=== PATIENT | male | born 1950 | race Caucasian/White ===

== ENCOUNTER 2018-06-02 00:15 | Inpatient (IN) | payer BC, OTHER ==
[2018-06-02 03:24] LABS: BASO % 0.4 % (0-2.0); HEMOGLOBIN 13.8 GM/dL (11.7-16.9); LYMPH % 3.4 % (8-40); MCHC 33.6 g/dl (32.0-35.9); MEAN CELL VOLUME 80.2 fl (80-96); MEAN PLT VOLUME 8.8 fl (7.5-11.1); MONO % 2.3 % (3.8-10.2); NEUT % 93.9 % (42.8-82.8); PLATELET COUNT 280 K/MM3 (134-434); RDW 16.2 % (11.9-15.9); WHITE BLOOD COUNT 10.4 K/mm3 (4.0-10.0)
[2018-06-02 03:36] LABS: INR 1.1 (0.83-1.09)
[2018-06-02 03:39] LABS: ACTIVATED PTT 30.8 SECONDS (25.2-36.5)
[2018-06-02 03:49] LABS: URINE APPEARANCE CLEAR; URINE BILIRUBIN NEGATIVE (<2.0 mg/dL); URINE COLOR DK YELLOW; URINE GLUCOSE (UA) NEGATIVE (NEGATIVE); URINE KETONE TRACE (NEGATIVE); URINE LEUK ESTERASE NEGATIVE (NEGATIVE); URINE NITRITE NEGATIVE (NEGATIVE); URINE PROTEIN TRACE (NEGATIVE); URINE UROBILINOGEN 0.2 mg/dL (0.2-1.0)
[2018-06-02 03:49] LABS: ALK PHOS 58 U/L (45-117); ANION GAP 9 MMOL/L (8-16); BILIRUBIN,TOTAL 0.4 mg/dL (0.2-1); BLOOD UREA NITROGEN 19 mg/dL (7-18); CALCIUM 9.6 mg/dL (8.5-10.1); CHLORIDE 98 mmol/L (98-107); CO2 29 mmol/L (21-32); CREATININE 0.9 mg/dL (0.55-1.3); GLUCOSE,RANDOM 143 mg/dL (74-106); LIPASE 117 U/L (73-393); POTASSIUM 4.1 mmol/L (3.5-5.1); SGOT/AST 16 U/L (15-37); SGPT/ALT 21 U/L (13-61); SODIUM 136 mmol/L (136-145); TOT PROT 7.5 g/dl (6.4-8.2)
[2018-06-02 04:06] LABS: PLATELET ESTIMATE ADEQUATE
[2018-06-02] MEDS ORDERED: ACETAMINOPHEN 1000 MG/100 ML VIAL (NON FORMULARY) IVPB ONE (04:09)
[2018-06-02] MEDS ORDERED: ACETAMINOPHEN INJECTION 100 ML IVPB ONE ×2 (04:20→12:03)
--- NOTE | 2018-06-02 04:47 | PDOC ---
History of Present Illness - General Chief Complaint: Pain, Acute Stated Complaint: ABD PAIN, SWELLING/RT LEG, S/P SUGERY Time Seen by Provider: 06/02/18 02:25 History Source: Patient Exam Limitations: No Limitations - History of Present Illness Initial Comments: 06/02/18 06:23 67 yo M with a hx of GERD (Barretts Esophagus) and HTN presents to the emergency department with RLE swelling and abdominal pain. Per the patient, he had removal of a benign mass in the right anterior inguinal fold on 04/04/2018 without complications. He states he has been having non-painful RLE swelling without SOB and hx of DVT and PE. Per the patient, he began having gradual onset of periumbilical pain at 5 pm yesterday that is sharp in nature, 9/10 initially but currently 3/10, with associative burping and gas. Denies abdominal surgeries in the past. Denies the following: fever, chills, nausea, vomiting, chest pain, SOB, dysuria, hematuria, diarrhea, hematochezia, and anemia. Per the patient, last bowel movement was at 9pm and he last ate at 12 pm yesterday. Shx: Right thigh Meds: HCTZ, adair-inhibitor, Allergies: NKDA Social: Denies tobacco, alcohol, and substance abuse. Past History - Past Medical History Allergies/Adverse Reactions: Allergies Allergy/AdvReac Type Severity Reaction Status Date / Time No Known Allergies Allergy Verified 06/02/18 00:47 Home Medications: Ambulatory Orders Hydrochlorothiazide 20 mg PO DAILY 06/02/18 Anemia: No Asthma: No Cancer: No Cardiac Disorders: No CVA: No COPD: No CHF: No DVT: No Dementia: No Diabetes: No Dialysis: No GI Disorders: No Disorders: No HTN: Yes Hypercholesterolemia: No Kidney Stones: No Liver Disease: No Psychiatric Problems: No Seizures: No Thyroid Disease: No Lung CA: No - Surgical History Abdominal Surgery: No Appendectomy: No Cardiac Surgery: No Cholecystectomy: No Gastric Stapling: No GI Surgery: No Lung Surgery: No Neurologic Surgery: No - Suicide/Smoking/Psychosocial Hx Smoking History: Never smoked Have you smoked in the past 12 months: No Hx Alcohol Use: No Drug/Substance Use Hx: No Review of Systems - Review of Systems Able to Perform ROS?: Yes Is the patient limited Arabic proficient: No Constitutional: No: Chills, Diaphoresis, Fever, Weakness HEENTM: No: Eye Pain, Recent change in vision, Ear Pain, Nose Pain, Throat Pain , Mouth Pain Respiratory: No: Cough, Shortness of Breath, Hemoptysis Cardiac (ROS): Yes: Edema (RLE). No: Chest Pain, Lightheadedness, Palpitations , Syncope, Chest Tightness ABD/GI: Yes: Abdominal cramping. No: Constipated, Diarrhea, Nausea, Poor Appetite, Poor Fluid Intake, Rectal Bleeding, Vomiting, Tarry Stools : No: Burning, Dysuria, Hematuria, Incontinence Musculoskeletal: No: Back Pain, Joint Pain, Neck Pain Integumentary: No: Bruising, Erythema, Sweating Neurological: No: Headache, Numbness, Tingling, Tremors, Dizziness Psychiatric: No: Change in Appetite Endocrine: No: Unexplained Weight Gain Hematologic/Lymphatic: No: Anemia *Physical Exam - Vital Signs Last Vital Signs Temp Pulse Resp BP Pulse Ox 97.9 F 73 20 159/77 95 06/02/18 00:53 06/02/18 00:53 06/02/18 00:53 06/02/18 00:53 06/02/18 00:53 - Physical Exam General Appearance: Yes: Nourished, Appropriately Dressed. No: Apparent Distress, Obese HEENT: positive: EOMI, NGUYỄN, Normal Voice, Symmetrical, TMs Normal, Pharynx Normal, Hearing Grossly Normal. negative: Pale Conjunctivae, Scleral Icterus (R ), Scleral Icterus (L), Muffled/Hoarse voice, Pharyngeal Erythema, Tonsillar Exudate, Tonsillar Erythema, Excessive drooling Neck: positive: Trachea midline, Supple. negative: Tender, Lymphadenopathy (R) , Lymphadenopathy (L), Tender lateral, Tender midline Respiratory/Chest: positive: Lungs Clear, Normal Breath Sounds. negative: Chest Tender, Respiratory Distress, Accessory Muscle Use, Rales, Rhonchi, Stridor, Wheezing Cardiovascular: positive: Regular Rhythm, Regular Rate, S1, S2. negative: Systolic Murmur Gastrointestinal/Abdominal: positive: Normal Bowel Sounds, Tender (periumbilical ). negative: Rebound, Hernia Lymphatic: negative: Adenopathy Musculoskeletal: positive: Other (patient has surgical post scars with indurations in the right anterior thigh fold.). negative: Normal Inspection, CVA Tenderness, Vertebral Tenderness Extremity: positive: Normal Capillary Refill, Normal Range of Motion, Swelling ( RLE). negative: Normal Inspection, Tender, Cyanosis, Erythema Integumentary: positive: Normal Color, Dry, Warm Neurologic: positive: package pick up II-XII NML intact, Fully Oriented, Alert, Normal Mood/ Affect, Normal Response, Motor Strength 5/5. negative: EOM Palsy, Facial Droop , Sensory Deficit Moderate Sedation - Procedure Monitoring Vital Signs: Procedure Monitoring Vital Signs Temperature 97.9 F 06/02/18 00:53 Pulse Rate 73 06/02/18 00:53 Respiratory Rate 20 06/02/18 00:53 Blood Pressure 159/77 06/02/18 00:53 O2 Sat by Pulse Oximetry (%) 95 06/02/18 00:53 ED Treatment Course - LABORATORY CBC & Chemistry Diagram: 06/02/18 03:00 06/02/18 03:00 - ADDITIONAL ORDERS Additional order review: Laboratory Results 06/02/18 06/02/18 06/02/18 03:25 03:00 03:00 PT with INR INR PTT (Actin FS) D-Dimer Sodium 136 Potassium 4.1 Chloride 98 Carbon Dioxide 29 Anion Gap 9 BUN 19 H Creatinine 0.9 Creat Clearance w eGFR 84.69 Random Glucose 143 H Lactic Acid 2.8 H* Calcium 9.6 Total Bilirubin 0.4 AST 16 ALT 21 Alkaline Phosphatase 58 Total Protein 7.5 Albumin 4.0 Lipase 117 Urine Color Dk yellow Urine Appearance Clear Urine pH 5.0 Ur Specific [place] 1.029 Urine Protein Trace Urine Glucose (UA) Negative Urine Ketones Trace H Urine Blood Negative Urine Nitrite Negative Urine Bilirubin Negative Urine Urobilinogen 0.2 Ur Leukocyte Esterase Negative 06/02/18 06/02/18 03:00 03:00 PT with INR 13.00 INR 1.10 H PTT (Actin FS) 30.8 D-Dimer 431 Sodium Potassium Chloride Carbon Dioxide Anion Gap BUN Creatinine Creat Clearance w eGFR Random Glucose Lactic Acid Calcium Total Bilirubin AST ALT Alkaline Phosphatase Total Protein Albumin Lipase Urine Color Urine Appearance Urine pH Ur Specific [place] Urine Protein Urine Glucose (UA) Urine Ketones Urine Blood Urine Nitrite Urine Bilirubin Urine Urobilinogen Ur Leukocyte Esterase 06/02/18 03:00 RBC 5.10 MCV 80.2 MCHC 33.6 RDW 16.2 H MPV 8.8 Neutrophils % 93.9 H Lymphocytes % 3.4 L Monocytes % 2.3 L Eosinophils % 0.0 Basophils % 0.4 - RADIOLOGY Radiology Studies Ordered: Category Date Time Status ABDOMEN & PELVIS CT WITH CONTR [CT] Stat CT Scan 06/02/18 02:36 Ordered CHEST X-RAY PORTABLE* [RAD] Stat Radiology 06/02/18 02:36 Taken - Medications Given in the ED: ED Medications Discontinued Medications Generic Name Dose Route Start Last Admin Trade Name Freq PRN Reason Stop Dose Admin Acetaminophen 1,000 mg 06/02/18 04:09 06/02/18 04:25 Ofirmev Injection - IVPB 06/02/18 04:10 1,000 mg ONCE ONE Administration Medical Decision Making - Medical Decision Making 06/02/18 06:53 67 yo M with a hx of GERD (Barretts Esophagus) and HTN presents to the emergency department with RLE swelling and abdominal pain. Initial vitals: Initial Vital Signs Temp Pulse Resp BP Pulse Ox 97.9 F 73 20 159/77 95 06/02/18 00:53 06/02/18 00:53 06/02/18 00:53 06/02/18 00:53 06/02/18 00:53 Work up: ddx: pancreatitis vs SBO vs colitis vs gastritis vs ACS vs PNA vs pleuritis vs DVT vs cellulitis vs lymphatic drainage impairment secondary to recent surgical changes vs GERD vs ischemic colitis Laboratory Tests 06/02/18 06/02/18 06/02/18 03:00 03:00 03:00 WBC 10.4 H RBC 5.10 Hgb 13.8 Hct 41.0 MCV 80.2 MCH 27.0 MCHC 33.6 RDW 16.2 H Plt Count 280 MPV 8.8 Absolute Neuts (auto) 9.7 H Total Counted 100 Neutrophils % 93.9 H Neutrophils % (Manual) 96.0 H Lymphocytes % 3.4 L Lymphocytes % (Manual) 2.0 L Monocytes % 2.3 L Monocytes % (Manual) 2 L Eosinophils % 0.0 Basophils % 0.4 Nucleated RBC % 0 Platelet Estimate Adequate PT with INR 13.00 INR 1.10 H PTT (Actin FS) 30.8 D-Dimer 431 Sodium Potassium Chloride Carbon Dioxide Anion Gap BUN Creatinine Creat Clearance w eGFR Random Glucose Lactic Acid Calcium Total Bilirubin AST ALT Alkaline Phosphatase Total Protein Albumin Lipase Urine Color Urine Appearance Urine pH Ur Specific [place] Urine Protein Urine Glucose (UA) Urine Ketones Urine Blood Urine Nitrite Urine Bilirubin Urine Urobilinogen Ur Leukocyte Esterase 06/02/18 06/02/18 06/02/18 03:00 03:00 03:25 WBC RBC Hgb Hct MCV MCH MCHC RDW Plt Count MPV Absolute Neuts (auto) Total Counted Neutrophils % Neutrophils % (Manual) Lymphocytes % Lymphocytes % (Manual) Monocytes % Monocytes % (Manual) Eosinophils % Basophils % Nucleated RBC % Platelet Estimate PT with INR INR PTT (Actin FS) D-Dimer Sodium 136 Potassium 4.1 Chloride 98 Carbon Dioxide 29 Anion Gap 9 BUN 19 H Creatinine 0.9 Creat Clearance w eGFR 84.69 Random Glucose 143 H Lactic Acid 2.8 H* Calcium 9.6 Total Bilirubin 0.4 AST 16 ALT 21 Alkaline Phosphatase 58 Total Protein 7.5 Albumin 4.0 Lipase 117 Urine Color Dk yellow Urine Appearance Clear Urine pH 5.0 Ur Specific [place] 1.029 Urine Protein Trace Urine Glucose (UA) Negative Urine Ketones Trace H Urine Blood Negative Urine Nitrite Negative Urine Bilirubin Negative Urine Urobilinogen 0.[address] CT shows high grade SBO. Patients labs within normal limits except for the following; 10.4 WBC and 2.8 lactic acid. the patient had an N/V event NBNB after the initial encounter. per the patient's he was having increased pain. d- dimer was negative, thus no US needed. patient was given tylenol and 1 L of NS. Patient agrees to the admitted. the patient was signed out to Dr. Meza for pending surgery consult and admission. Dispo: Admit *DC/Admit/Observation/Transfer Diagnosis at time of Disposition: Small bowel obstruction - Referrals - Patient Instructions - Post Discharge Activity
[2018-06-02] MEDS ORDERED: ONDANSETRON 4 MG/2 ML VIAL IVPUSH ONE (06:11)
[2018-06-02] MEDS ORDERED: ONDANSETRON 4 MG/2 ML VIAL ONE ×2 (06:13→11:10)
[2018-06-02] MEDS ORDERED: SODIUM CHLORIDE 1,000 ML IV STA ×2 (06:19→08:23)
--- NOTE | 2018-06-02 06:19 | PDOC ---
Attending Attestation - Resident Resident Name: James Stern - ED Attending Attestation I have performed the following: I have examined & evaluated the patient, The case was reviewed & discussed with the resident, I agree w/resident's findings & plan, Exceptions are as noted - HPI HPI: 06/02/18 06:13 67 M with h/o HTN, recent benign mass removal from R groin 03/2018, presenting to ED with abdominal pain and RLE swelling. Pt states that his right leg has gotten progressively more swollen over the past week. Denies CP/SOB. Pt also complains of diffuse abdominal pain starting today. Denies N/V. States the pain wraps around his lower abdomen. Denies diarrhea/constipation. No F/C. No prior abdominal surgeries. - Physicial Exam PE: 06/02/18 06:14 "GENERAL: Awake, alert, and fully oriented, in no acute distress. HEAD: No signs of trauma EYES: PERRLA, EOMI, sclera anicteric, conjunctiva clear ENT: Auricles normal inspection, hearing grossly normal, nares patent, oropharynx clear without exudates. Moist mucosa NECK: Nontender, no stepoffs, Normal ROM, supple, no lymphadenopathy, JVD, or masses LUNGS: Breath sounds equal, clear to auscultation bilaterally. No wheezes, and no crackles HEART: Regular rate and rhythm, normal S1 and S2, no murmurs, rubs or gallops ABDOMEN: + diffuse TTP, No guarding, no rebound. No masses EXTREMITIES: +2 PE RLE NEUROLOGICAL: Cranial nerves II through XII intact. 5/5 strength and sensation in all extremities, Normal speech, normal gait, normal cerebellar function SKIN: Warm, Dry, normal turgor, no rashes or lesions noted. - Medical Decision Making 06/02/18 06:16 67 M with diffuse abdominal pain. Vomited x [address] in [address] Will obtain CT to r/o obstruction. Pt also with significant swelling to RLE. Will need to r/o DVT. - Labs, ddimer - CTAP - RLE US 06/02/18 06:56 Labs with + lactate Ddimer negative CT shows high grade SBO Pt signed out to oncoming attending, pending surgical consultation and admission to hospital
--- NOTE | 2018-06-02 07:12 | PDOC ---
*Physical Exam - Vital Signs Last Vital Signs Temp Pulse Resp BP Pulse Ox 98.6 F 88 20 155/71 99 06/02/18 06:36 06/02/18 06:36 06/02/18 06:36 06/02/18 06:36 06/02/18 06:36 ED Treatment Course - LABORATORY CBC & Chemistry Diagram: 06/02/18 03:00 06/02/18 03:00 - ADDITIONAL ORDERS Additional order review: Laboratory Results 06/02/18 06/02/18 06/02/18 03:25 03:00 03:00 PT with INR INR PTT (Actin FS) D-Dimer Sodium 136 Potassium 4.1 Chloride 98 Carbon Dioxide 29 Anion Gap 9 BUN 19 H Creatinine 0.9 Creat Clearance w eGFR 84.69 Random Glucose 143 H Lactic Acid 2.8 H* Calcium 9.6 Total Bilirubin 0.4 AST 16 ALT 21 Alkaline Phosphatase 58 Total Protein 7.5 Albumin 4.0 Lipase 117 Urine Color Dk yellow Urine Appearance Clear Urine pH 5.0 Ur Specific [place] 1.029 Urine Protein Trace Urine Glucose (UA) Negative Urine Ketones Trace H Urine Blood Negative Urine Nitrite Negative Urine Bilirubin Negative Urine Urobilinogen 0.2 Ur Leukocyte Esterase Negative 06/02/18 06/02/18 03:00 03:00 PT with INR 13.00 INR 1.10 H PTT (Actin FS) 30.8 D-Dimer 431 Sodium Potassium Chloride Carbon Dioxide Anion Gap BUN Creatinine Creat Clearance w eGFR Random Glucose Lactic Acid Calcium Total Bilirubin AST ALT Alkaline Phosphatase Total Protein Albumin Lipase Urine Color Urine Appearance Urine pH Ur Specific [place] Urine Protein Urine Glucose (UA) Urine Ketones Urine Blood Urine Nitrite Urine Bilirubin Urine Urobilinogen Ur Leukocyte Esterase 06/02/18 03:00 RBC 5.10 MCV 80.2 MCHC 33.6 RDW 16.2 H MPV 8.8 Neutrophils % 93.9 H Lymphocytes % 3.4 L Monocytes % 2.3 L Eosinophils % 0.0 Basophils % 0.4 - Medications Given in the ED: ED Medications Discontinued Medications Generic Name Dose Route Start Last Admin Trade Name Freq PRN Reason Stop Dose Admin Acetaminophen 1,000 mg 06/02/18 04:09 06/02/18 04:25 Ofirmev Injection - IVPB 06/02/18 04:10 1,000 mg ONCE ONE Administration Ondansetron HCl 4 mg 06/02/18 06:11 06/02/18 06:19 Zofran Injection IVPUSH 06/02/18 06:12 4 mg ONCE ONE Administration Medical Decision Making - Medical Decision Making 06/02/18 07:11 Pt signed out to me by Dr. Stern 67yo M with PMH of GERD, HTN presenting to ED for RLE swelling and abdominal pain. Gradual onset of periumbilical pain at 5 pm yesterday that is sharp in nature, 9/10 associated with burping. No nausea or vomiting at home however pt had 1 episode of emesis here. CT with IV contrast showed high greade SBO. Lact 2.8 Need to call surgery and get pt admitted med/surg. Called Dr.Kant. Moe start pt on 2nd L fluids, T+S, NG tube placement, NPO. PT admitted med/surg 06/02/18 19:39 *DC/Admit/Observation/Transfer Diagnosis at time of Disposition: Small bowel obstruction - Referrals - Patient Instructions - Post Discharge Activity
[2018-06-02] MEDS ORDERED: LACTATED RINGERS SOLUTION 1000 ML INFUS.BAG IV ONE (08:00)
[2018-06-02] MEDS ORDERED: morphine CARPU-JECT 4 MG/1 ML DISP.SYRIN IVPUSH ONE (08:26)
[2018-06-02] MEDS ORDERED: MORPHINE SULFATE 2 MG/ML VIAL ONE (08:29)
[2018-06-02] MEDS ORDERED: LACTATED RINGERS SOLUTION 1,000 ML/1,000 ML INFUS.BAG IV SCH ×2 (08:30→13:56)
--- NOTE | 2018-06-02 10:15 | CONSULT ---
Consult Consult Specialty:: General Surgery Referred by:: Tim Meza Reason for Consultation:: SBO - History of Present Illness Chief Complaint: periumbilical pain History of Present Illness: 67yo M with HTN, GERD, Ron's, s/p R upper thigh large benign mass removal 2m ago but no previous abdominal surgeries, began having periumbilical pain last evening which did not marisol and continued to get worse, prompting a visit to urgent care this morning, who sent him to ER for evaluation. He denies N/V until ER, diarrhea or constipation, last normal BM last night, F/C, similar previous pain. He did not take anything for the pain, and last po was food last afternoon and tea last night. In ER, he is afebrile, with wbc just over 10, dry by UA, and CT shows SBO with transition against RLQ sidewall. NGT has been placed, and IVF given. He still has some discomfort periumbilically but denies migration of pain. Not sure what the R thigh mass was but it was large and long- standing, and he was told it was benign. He is seen and examined in holding in ER with present. - History Source History Provided By: Patient Limitations to Obtaining History: No Limitations - Past Medical History Cardio/Vascular: Yes: HTN Gastrointestinal: Yes: GERD, Other (Ron's esophagus) - Past Surgical History Past Surgical History: Yes: Cataract Removal (bilateral), Colonoscopy (3-4 yrs ago), Upper Endoscopy Additional Surgical History: R upper thigh long-standing large benign mass removed 03/31 at [facility] - Alcohol/Substance Use Hx Alcohol Use: Yes (wine with dinner most days) History of Substance Use: reports: None - Smoking History Smoking history: Former smoker (3-4/day for 5 yrs) Have you smoked in the past 12 months: No If you are a former smoker, when did you quit?: many years ago - Social History Usual Living Arrangement: With Spouse ADL: Independent Home Medications - Allergies Allergies/Adverse Reactions: Allergies Allergy/AdvReac Type Severity Reaction Status Date / Time No Known Allergies Allergy Verified 06/02/18 00:47 - Home Medications Home Medications: Ambulatory Orders Hydrochlorothiazide 20 mg PO DAILY 06/02/18 Home Medications (free text): HCTZ daily, lisinopril daily; omeprazole daily Family Disease History - Family Disease History Family History: Unremarkable (noncontributory) Review of Systems - Review of Systems Constitutional: denies: Chills, Fever Eyes: reports: Other (uses reading glasses). denies: Recent Change in Vision HENT: denies: Difficult Swallowing, Nasal Congestion, Throat Pain Neck: denies: Swollen Glands, Tenderness Cardiovascular: denies: Chest Pain, Palpitations Respiratory: denies: Cough, SOB Gastrointestinal: reports: Abdominal Pain (with hpi), Nausea (in ER), Vomiting ( in ER). denies: Constipation, Diarrhea Genitourinary: denies: Burning, Dysuria Musculoskeletal: denies: Back Pain, Joint Pain, Muscle Pain Integumentary: reports: Other (healing scar upper right thigh). denies: Change in Color, Rash Neurological: denies: Dizziness, Headache Psychiatric: denies: Anxiety, Depression Physical Exam Vital Signs: Vital Signs Temperature 98.6 F 06/02/18 06:36 Pulse Rate 88 06/02/18 06:36 Respiratory Rate 20 06/02/18 06:36 Blood Pressure 155/71 06/02/18 06:36 O2 Sat by Pulse Oximetry (%) 99 06/02/18 06:36 Constitutional: Yes: Well Nourished, No Distress, Calm Eyes: Yes: Conjunctiva Clear, EOM Intact HENT: Yes: Atraumatic, Normocephalic, Other (NGT in place, resecured with total output 1100ml brown fluid (was ~300 on my arrival)) Neck: Yes: Supple, Trachea Midline Cardiovascular: Yes: Regular Rate and Rhythm. No: Murmur Respiratory: Yes: Regular, CTA Bilaterally Gastrointestinal: Yes: Soft, Hypoactive Bowel Sounds, Tenderness (mild periumbilical only, no R/G). No: Distention ...Rectal Exam: Yes: Deferred Renal/: No: CVA Tenderness - Left, CVA Tenderness - Right Musculoskeletal: No: Joint Stiffness, Joint Swelling Extremities: Yes: Other (long healing scar right upper thigh from just under groin crease around to posterolateral hip area). No: Cool, Cyanosis Edema: Yes Edema: LLE: Trace, RLE: Trace Peripheral Pulses WNL: Yes Integumentary: Yes: Incision (R upper thigh, healing scar). No: Jaundice, Rash Wound/Incision: Yes: Clean/Dry, Well Approximated (R upper thigh scar), Open to air Neurological: Yes: Alert, Oriented Psychiatric: Yes: Alert, Oriented Labs: CBC, BMP 06/02/18 03:00 06/02/18 03:00 CMP Sodium 136 mmol/L (136-145) 06/02/18 03:00 Potassium 4.1 mmol/L (3.5-5.1) 06/02/18 03:00 Chloride 98 mmol/L (98-107) 06/02/18 03:00 Carbon Dioxide 29 mmol/L (21-32) 06/02/18 03:00 Anion Gap 9 MMOL/L (8-16) 06/02/18 03:00 BUN 19 mg/dL (7-18) H 06/02/18 03:00 Creatinine 0.9 mg/dL (0.55-1.3) 06/02/18 03:00 Creat Clearance w eGFR 84.69 (>60) 06/02/18 03:00 Random Glucose 143 mg/dL (74-106) H 06/02/18 03:00 Lactic Acid 2.8 mmol/L (0.4-2.0) H* 06/02/18 03:00 Calcium 9.6 mg/dL (8.5-10.1) 06/02/18 03:00 Total Bilirubin 0.4 mg/dL (0.2-1) 06/02/18 03:00 AST 16 U/L (15-37) 06/02/18 03:00 ALT 21 U/L (13-61) 06/02/18 03:00 Alkaline Phosphatase 58 U/L (45-117) 06/02/18 03:00 Total Protein 7.5 g/dl (6.4-8.2) 06/02/18 03:00 Albumin 4.0 g/dl (3.4-5.0) 06/02/18 03:00 Lipase 117 U/L (73-393) 06/02/18 03:00 INR, PTT INR 1.10 (0.83-1.09) H 06/02/18 03:00 Urine Test Results Urine Color Dk yellow 06/02/18 03:25 Urine Appearance Clear 06/02/18 03:25 Urine pH 5.0 (5.0-8.0) 06/02/18 03:25 Ur Specific [place] 1.029 (1.010-1.035) 06/02/18 03:25 Urine Protein Trace (NEGATIVE) 06/02/18 03:25 Urine Glucose (UA) Negative (NEGATIVE) 06/02/18 03:25 Urine Ketones Trace (NEGATIVE) H 06/02/18 03:25 Urine Blood Negative (NEGATIVE) 06/02/18 03:25 Urine Nitrite Negative (NEGATIVE) 06/02/18 03:25 Urine Bilirubin Negative (<2.0 mg/dL) 06/02/18 03:25 Ur Leukocyte Esterase Negative (NEGATIVE) 06/02/18 03:25 Imaging - Results Cat Scan: Image Reviewed (images reviewed - dilated stomach and small bowel to likely transition in RLQ around sidewall, appendix not clearly identified by me , not clearly inflammatory changes, no free air or fluid, possible pneumatosis in a segment of dilated small bowel, colon decompressed with stool content present) Problem List - Problems (1) Small bowel obstruction Assessment/Plan: admit to medicine NPO/IVF - generous hydration NGT placed - now with copious output GI/DVT prophylaxis SBO with no history of abdominal surgery - urgent exploration indicated Discussed with patient risks, benefits and alternatives of exploratory laparotomy, possible bowel resection, possible ostomy, including but not limited to bleeding, infection, injury to adjacent structures, intestinal leak or injury, intraabdominal abscess, incisional hernia, need for further procedures, ; alternatives include delayed or no surgery - risks of this include perforation, bowel ischemia, sepsis, . Patient desires to proceed with operation - will take to OR emergently for above. Informed consent signed for same. NGT will stay postop until bowel function resumes perioperative antibiotics Code(s): K56.609 - UNSP INTESTNL OBST, UNSP TO PARTIAL VERSUS COMPLETE OBST (2) Periumbilical abdominal pain Code(s): R10.33 - PERIUMBILICAL PAIN (3) Hypertension Code(s): I10 - ESSENTIAL (PRIMARY) HYPERTENSION Qualifiers: Hypertension type: essential hypertension Qualified Code(s): I10 - Essential (primary) hypertension (4) GERD (gastroesophageal reflux disease) Code(s): K21.9 - GASTRO-ESOPHAGEAL REFLUX DISEASE WITHOUT ESOPHAGITIS Qualifiers: Esophagitis presence: without esophagitis Qualified Code(s): K21.9 - Gastro -esophageal reflux disease without esophagitis
[2018-06-02] MEDS ORDERED: ROCURONIUM BROMIDE 50 MG/5 ML VIAL ONE ×2 (10:45→11:52)
[2018-06-02] MEDS ORDERED: PROPOFOL 20 ML ONE ×3 (10:45→12:36)
[2018-06-02] MEDS ORDERED: MIDAZOLAM HCL 2 MG/2 ML SINGLE DOSE VIAL ONE (10:46)
[2018-06-02] MEDS ORDERED: LIDOCAINE HCL/PF 2% SDV 5ML VIAL ONE (10:47)
[2018-06-02] MEDS ORDERED: CEFOXITIN SODIUM 2 GM IVPB ONE (10:52)
[2018-06-02] MEDS ORDERED: cefOXitin SODIUM 2 GM VIAL (RESTRICTED TO ID) IVPB ONE (11:03)
[2018-06-02] MEDS ORDERED: SODIUM CHLORIDE 0.9% P/F 10 ML VIAL IJ ONE (11:06)
[2018-06-02] MEDS ORDERED: DEXAMETHASONE SOD PHOSPHATE 4 MG/1 ML VIAL ONE (11:10)
--- NOTE | 2018-06-02 11:19 | HP ---
CHIEF COMPLAINT: abdominal pain. PCP: HISTORY OF PRESENT ILLNESS: 67 yo M with PMHx of HTN, GERD, Ron's, s/p R upper thigh large benign mass removal 2m ago but no prev abdominal surgeries with one day history of intractable progressive periumbilical pain. He describes progressive intermittent 10/10 twisting periumbilical pain with no alleviating factors. Aggravated by palpation and certain movements. Pain progressed to be more constant and prompted a visit to urgent care and subsequently sent to ER for further evaluation. He denied N/V until ER, diarrhea or constipation, last non- bloddy BM last night, no similar previous pain. He did not take anything for the pain, and last po was food last afternoon and tea last night. In ER, he was afebrile, no leukocytosis, pre-renal azotemia, and CT abdomen showed SBO. NGT was placed, and IVF given. He had continued discomfort periumbilically but denied migration of pain. Unclear of nature of R thigh mass was but it was large and long-standing, and he was told it was benign. Dr. Heller evaluated patient in ER and was taken to OR for surgical intervention. ER course was notable for: (1)CT abdomen shows high grade obstruction. (2)Lactic Acid 2.8 (3)Surgery consult and taken to OR. Recent Travel:denies PAST MEDICAL HISTORY:HTN, GERD, Ron's esophagus PAST SURGICAL HISTORY:Cataract Removal (bilateral), Colonoscopy (3-4 yrs ago as per patient NORMAL), Upper Endoscopy,R upper thigh long-standing large benign mass removed 03/31 at [facility] Social History: Smoking: Former smoker (3-4/day for 5 yrs) Alcohol:socially Drugs: denies Family History: Father and Brother both with HTN, Mother @45 of uterine cancer, Father on OR table during CABG @75. Allergies No Known Allergies Allergy (Verified 06/02/18 00:47) HOME MEDICATIONS: Home Medications Medication Instructions Recorded Hydrochlorothiazide 20 mg PO DAILY 06/02/18 REVIEW OF SYSTEMS CONSTITUTIONAL: Absent: fever, chills, diaphoresis, generalized weakness, malaise, loss of appetite, weight change HEENT: Absent: rhinorrhea, nasal congestion, throat pain, throat swelling, difficulty swallowing, mouth swelling, ear pain, eye pain, visual changes CARDIOVASCULAR: Absent: chest pain, syncope, palpitations, irregular heart rate, lightheadedness , peripheral edema RESPIRATORY: Absent: cough, shortness of breath, dyspnea with exertion, orthopnea, wheezing, stridor, hemoptysis GASTROINTESTINAL: abdominal pain, abdominal distension, nausea, vomiting, Absent: diarrhea, constipation, melena, hematochezia GENITOURINARY: Absent: dysuria, frequency, urgency, hesitancy, hematuria, flank pain, genital pain MUSCULOSKELETAL: Healing right upper thigh. Absent: myalgia, arthralgia, joint swelling, back pain, neck pain SKIN: Absent: rash, itching, pallor HEMATOLOGIC/IMMUNOLOGIC: Absent: easy bleeding, easy bruising, lymphadenopathy, frequent infections ENDOCRINE: Absent: unexplained weight gain, unexplained weight loss, heat intolerance, cold intolerance NEUROLOGIC: Absent: headache, focal weakness or paresthesias, dizziness, unsteady gait, seizure, mental status changes, bladder or bowel incontinence PSYCHIATRIC: Absent: anxiety, depression, suicidal or homicidal ideation, hallucinations. PHYSICAL EXAMINATION Vital Signs - 24 hr 06/02/18 06/02/18 06/02/18 00:53 06:36 10:17 Temperature 97.9 F 98.6 F 98.2 F Pulse Rate 73 Pulse Rate [ 88 103 H Right Radial] Respiratory 20 20 17 Rate Blood Pressure 159/77 Blood Pressure 155/71 136/80 [Right Arm] O2 Sat by Pulse 95 99 93 L Oximetry (%) GENERAL: AAOx3, NAD HEAD:NCAT EYES: PERRLA,EOMI sclera anicteric, conjunctiva clear. No lid lag. EARS, NOSE, THROAT:Moist mucous membranes. NG tube in place. NECK:supple without lymphadenopathy, JVD, or masses. LUNGS: CTAB. No wheezes, and no crackles. No accessory muscle use. HEART: RRR, NL S1 and S2 without murmur, rub or gallop. ABDOMEN: Soft, surgical wound appears c/d/i. MUSCULOSKELETAL: NL ROM. No bony deformities or tenderness. No CVA tenderness. LOWER EXTREMITIES: 2+ pulses, warm, well-perfused. No calf tenderness. trace bilateral LE edema. NEUROLOGICAL: Cranial nerves II-XII intact. Normal speech. No focal def. PSYCHIATRIC: Cooperative. Good eye contact. Appropriate mood and affect. SKIN: long healing scar right upper thigh from just under groin crease around to posterolateral hip area Laboratory Results - last 24 hr 06/02/18 06/02/18 06/02/18 03:00 03:00 03:00 WBC 10.4 H RBC 5.10 Hgb 13.8 Hct 41.0 MCV 80.2 MCH 27.0 MCHC 33.6 RDW 16.2 H Plt Count 280 MPV 8.8 Absolute Neuts (auto) 9.7 H Total Counted 100 Neutrophils % 93.9 H Neutrophils % (Manual) 96.0 H Lymphocytes % 3.4 L Lymphocytes % (Manual) 2.0 L Monocytes % 2.3 L Monocytes % (Manual) 2 L Eosinophils % 0.0 Basophils % 0.4 Nucleated RBC % 0 Platelet Estimate Adequate PT with INR 13.00 INR 1.10 H PTT (Actin FS) 30.8 D-Dimer 431 Sodium Potassium Chloride Carbon Dioxide Anion Gap BUN Creatinine Creat Clearance w eGFR Random Glucose Lactic Acid Calcium Total Bilirubin AST ALT Alkaline Phosphatase Total Protein Albumin Lipase Urine Color Urine Appearance Urine pH Ur Specific [place] Urine Protein Urine Glucose (UA) Urine Ketones Urine Blood Urine Nitrite Urine Bilirubin Urine Urobilinogen Ur Leukocyte Esterase Blood Type Antibody Screen 06/02/18 06/02/18 06/02/18 03:00 03:00 03:25 WBC RBC Hgb Hct MCV MCH MCHC RDW Plt Count MPV Absolute Neuts (auto) Total Counted Neutrophils % Neutrophils % (Manual) Lymphocytes % Lymphocytes % (Manual) Monocytes % Monocytes % (Manual) Eosinophils % Basophils % Nucleated RBC % Platelet Estimate PT with INR INR PTT (Actin FS) D-Dimer Sodium 136 Potassium 4.1 Chloride 98 Carbon Dioxide 29 Anion Gap 9 BUN 19 H Creatinine 0.9 Creat Clearance w eGFR 84.69 Random Glucose 143 H Lactic Acid 2.8 H* Calcium 9.6 Total Bilirubin 0.4 AST 16 ALT 21 Alkaline Phosphatase 58 Total Protein 7.5 Albumin 4.0 Lipase 117 Urine Color Dk yellow Urine Appearance Clear Urine pH 5.0 Ur Specific [place] 1.029 Urine Protein Trace Urine Glucose (UA) Negative Urine Ketones Trace H Urine Blood Negative Urine Nitrite Negative Urine Bilirubin Negative Urine Urobilinogen 0.2 Ur Leukocyte Esterase Negative Blood Type Antibody Screen 06/02/18 08:28 WBC RBC Hgb Hct MCV MCH MCHC RDW Plt Count MPV Absolute Neuts (auto) Total Counted Neutrophils % Neutrophils % (Manual) Lymphocytes % Lymphocytes % (Manual) Monocytes % Monocytes % (Manual) Eosinophils % Basophils % Nucleated RBC % Platelet Estimate PT with INR INR PTT (Actin FS) D-Dimer Sodium Potassium Chloride Carbon Dioxide Anion Gap BUN Creatinine Creat Clearance w eGFR Random Glucose Lactic Acid Calcium Total Bilirubin AST ALT Alkaline Phosphatase Total Protein Albumin Lipase Urine Color Urine Appearance Urine pH Ur Specific [place] Urine Protein Urine Glucose (UA) Urine Ketones Urine Blood Urine Nitrite Urine Bilirubin Urine Urobilinogen Ur Leukocyte Esterase Blood Type O POSITIVE Antibody Screen Negative IMAGING: * CT abdomen:Impression:1. High-grade distal small bowel obstruction as described above.2. Slight asymmetric right renal atrophy.3. 0.8 x 0.5 cm nonobstructing right renal calculus. Number for extensive skin thickening and subcutaneous fat stranding inflammatory changes involving the right thigh extending into the right lateral gluteal area which could be due to infectious, inflammatory, or neoplastic etiology. Clinical correlation with direct visual physical examination is recommended if not already performed.4. Grade 1 anterolisthesis of L5 on S1 secondary to degenerative changes. ASSESSMENT/PLAN: 67 yo M with a hx of GERD (Barretts Esophagus) and HTN presents to the emergency department with RLE swelling and abdominal pain admitted for high grade SBO and need for urgent surgical exploration POD #0 s/p bowel resection and primary anastomosis. Problem List - Problem (1) Small bowel obstruction Assessment/Plan: POD # 0 s/p small bowel resection, biopsy of proximal small bowel implant, peritoneal washings * NPO * NG tube * Dr. Heller on board. * specimens sent for pathology * CA19-9 or CEA pending. * post-op abx. Cefoxiting 2gm IV x 1 * ETHNOARCHAEOLOGY PROFESSOR per anesthesia for pain * tylenol IVPB PRN * Compazine PRN for nausea. * IVF with LR (2) GERD (gastroesophageal reflux disease) Assessment/Plan: * Protonix 40 mg IV daily (3) Hypertension Assessment/Plan: * HCTZ 20mg daily held. * will cover with IV antihypertensives if necessary. (4) DVT prophylaxis Assessment/Plan: scd's bilat. Visit type - Emergency Visit Emergency Visit: Yes ED Registration Date: 06/02/18 Care time: The patient presented to the Emergency Department on the above date and was hospitalized for further evaluation of their emergent condition. - New Patient This patient is new to me today: Yes Date on this admission: 06/02/18 - Critical Care Critical Care patient: No
[2018-06-02] MEDS ORDERED: morphine SULFATE 4 MG/ML VIAL IVPUSH PRN (11:22)
[2018-06-02] MEDS ORDERED: ONDANSETRON 4 MG/2 ML VIAL IVPUSH PRN ×3 (11:24→15:02)
[2018-06-02] MEDS ORDERED: METOPROLOL TARTRATE 5 MG/5 ML VIAL ONE (12:14)
[2018-06-02] MEDS ORDERED: NEOSTIGMINE METHYLSULFATE 0.5 MG/1 ML - 10 ML MDV ONE (12:34)
[2018-06-02] MEDS ORDERED: GLYCOPYRROLATE 0.2 MG/1 ML VIAL ONE ×2 (12:34→13:01)
[2018-06-02] MEDS ORDERED: KETOROLAC TROMETHAMINE 30 MG/1 ML VIAL ONE (12:43)
[2018-06-02] MEDS ORDERED: HYDROmorphone *PCA* 10MG/50ML DISP.SYRIN PCA SCH (13:15)
[2018-06-02] MEDS ORDERED: PROMETHAZINE HCL 25 MG/1 ML VIAL IVPB PRN (13:15)
[2018-06-02] MEDS ORDERED: LACTATED RINGERS SOLUTION 1,000 ML IV SCH (13:15)
[2018-06-02] MEDS ORDERED: DEXAMETHASONE SOD PHOSPHATE 4 MG/1 ML VIAL IVPUSH PRN ×2 (13:15→15:02)
[2018-06-02] MEDS ORDERED: HYDROmorphone *PCA* 10MG/50ML DISP.SYRIN PCA ONE (13:25)
--- NOTE | 2018-06-02 14:03 | OP ---
Operative Note - Note: Operative Date: 06/02/18 Pre-Operative Diagnosis: small bowel obstruction Operation: small bowel resection, biopsy of proximal small bowel implant, peritoneal washings Findings: fecalized segment of proximal small bowel with transition but no clear etiology , bowel wall implant short distance distal to this - entire segment removed en bloc 23cm long w/primary anastomosis; multiple small bowel wall implants on proximal small intestine all the way back to ligament of Treitz, one biopsied for pathology, areas marked with small mesenteric metal clips; peritoneal washings taken for cytology from proximal bowel area; normal appearing liver, stomach, colon, appendix, omentum Post-Operative Diagnosis: Other (SBO, multiple small intestinal implants on proximal bowel, fecalized small bowel with no clear etiology for transition point) Surgeon: Fredy Heller Refrigerating Oiler: Javi Clements Anesthesiologist/TITLE INSPECTOR: Don Cardona Anesthesia: General Specimens Removed: portion of proximal small bowel (stitch scott proximal/ lesion distal) to pathology, biopsy of small intestinal implant/nodule to pathology; peritoneal washings for cytology and cell count; peritoneal fluid for culture Estimated Blood Loss (mls): 10 Drains & Tubes with Location: preop NG palpated and left; Zepeda inserted and left Drains, Volume Out (mls): 100 (UOP) Fluid Volume Replaced (mls): 1,300 (crystalloid) Operative Report Dictated: Yes
[2018-06-02] MEDS ORDERED: LACTATED RINGERS SOLUTION 1000 ML INFUS.BAG IV SCH ×2 (15:00→15:02)
--- NOTE | 2018-06-02 15:41 | PN ---
Teaching Attending Note Name of Resident: Earl Mojica ATTENDING PHYSICIAN STATEMENT I saw and evaluated the patient. I reviewed the resident's note and discussed the case with the resident. I agree with the resident's findings and plan as documented. SUBJECTIVE: OBJECTIVE: ASSESSMENT AND PLAN: 67 y/o man with h/o HTN, GERD, and a recent R thigh mass resection ( reportedly benign) , who presented with Abd pain . He was found to have acute high grade distal SBO . 1- High grade distal SBO: unclear etiology. s/p partial small bowel resection POD 0 Op note reviewed, several small bowel wall implants were seen and Bx was taken. - follow path results - NPO - IVF with LR - BROADCAST CHIEF ENGINEER ordered - Appreciate surgical input 2- H/o HTN: hold HCTZ . hydrating now . slight hypertension could be due pain 3- GERD: PPI
[2018-06-02] MEDS ORDERED: PROCHLORPERAZINE INJECTION 10 MG/2 ML VIAL IVPB PRN (16:11)
--- NOTE | 2018-06-02 16:39 | EKG ---
Test Reason : Blood Pressure : / mmHG Vent. Rate : 071 BPM Atrial Rate : 071 BPM P-R Int : 164 ms QRS Dur : 092 ms QT Int : 406 ms P-R-T Axes : 045 -07 026 degrees QTc Int : 441 ms NORMAL SINUS RHYTHM WITH SINUS ARRHYTHMIA POSSIBLE LEFT ATRIAL ENLARGEMENT BORDERLINE ECG NO PREVIOUS ECGS AVAILABLE Confirmed by GAMALIEL JAQUEZ MD ([id number]) on 06/02/2018 4:38:34 PM Referred By: Confirmed By:GAMALIEL JAQUEZ MD
[2018-06-02] MEDS: HYDROmorphone *PCA* 10MG/50ML DISP.SYRIN PCA SCH (17:33)
[2018-06-02] MEDS: LACTATED RINGERS SOLUTION 1,000 ML/1,000 ML INFUS.BAG IV SCH (17:33)
[2018-06-02] MEDS ORDERED: CEFOXITIN SODIUM 2 GM in DEXTROSE 5%-WATER - 100 ML IVPB ONE (18:00)
[2018-06-02] MEDS ORDERED: CEFOXITIN SODIUM/DEXTROSE,ISO 2 GM/50 ML BAG IVPB ONE ×2 (18:00)
[2018-06-02] MEDS ORDERED: ACETAMINOPHEN 1000 MG/100 ML VIAL (NON FORMULARY) IVPB PRN ×2 (18:00)
[2018-06-03] MEDS: HYDROmorphone *PCA* 10MG/50ML DISP.SYRIN PCA SCH (07:45)
[2018-06-03 07:55] LABS: BASO % 0.6 % (0-2.0); EOS % 0.4 % (0-4.5); HEMATOCRIT 33.5 % (35.4-49); HEMOGLOBIN 11.1 GM/dL (11.7-16.9); LYMPH % 5.9 % (8-40); MCH 26.2 pg (25.7-33.7); MCHC 33.2 g/dl (32.0-35.9); MEAN CELL VOLUME 79.1 fl (80-96); MEAN PLT VOLUME 8.9 fl (7.5-11.1); MONO % 11.3 % (3.8-10.2); NEUT % 81.8 % (42.8-82.8); PLATELET COUNT 237 K/MM3 (134-434); RBC 4.23 M/mm3 (4.00-5.60); RDW 16.7 % (11.9-15.9); WHITE BLOOD COUNT 7.9 K/mm3 (4.0-10.0)
[2018-06-03 08:28] LABS: ALBUMIN 2.7 g/dl (3.4-5.0); ALK PHOS 39 U/L (45-117); ANION GAP 6 MMOL/L (8-16); BILIRUBIN,TOTAL 0.7 mg/dL (0.2-1); BLOOD UREA NITROGEN 20 mg/dL (7-18); CALCIUM 8.1 mg/dL (8.5-10.1); CHLORIDE 104 mmol/L (98-107); CO2 29 mmol/L (21-32); CREATININE 0.8 mg/dL (0.55-1.3); GLUCOSE,RANDOM 101 mg/dL (74-106); MAGNESIUM 2.1 mg/dL (1.8-2.4); PHOSPHOROUS 3.4 mg/dL (2.5-4.9); POTASSIUM 3.8 mmol/L (3.5-5.1); SGOT/AST 15 U/L (15-37); SGPT/ALT 21 U/L (13-61); SODIUM 139 mmol/L (136-145); TOT PROT 5.3 g/dl (6.4-8.2)
[2018-06-03] MEDS: PANTOPRAZOLE SODIUM 40 MG VIAL IVPUSH SCH (09:10)
[2018-06-03] MEDS: ENOXAPARIN NA (PORCINE) 40 MG/0.4 ML DISP.SYRIN SQ SCH (09:10)
[2018-06-03] MEDS: LACTATED RINGERS SOLUTION 1,000 ML/1,000 ML INFUS.BAG IV SCH (09:11)
--- NOTE | 2018-06-03 13:06 | PN ---
Progress Note, Physician History of Present Illness: Pt s/p laparotomy with small bowel resection for obstruction with soft transition point but no clear etiology identified, also biopsy of small bowel nodule/implant, of which multiple were identified on proximal small bowel oconnor , peritoneal washings for cytology - seen and examined in bed. He reports feeling ok, pain controlled with demand PREP COOK, has been OOB to chair for several hours already. C/O dry mouth. No flatus or BM yet. NG with green/brown drainage , sumped open at bedside, only few hundred ml in canister. Zepeda with yellow/ sola urine in bag and tubing. No fevers. Can get ~500ml on IS. - Current Medication List Current Medications: Active Medications Acetaminophen (Ofirmev Injection -) 1,000 mg IVPB Q6H PRN PRN Reason: PAIN LEVEL 6-10 Dexamethasone Sodium Phosphate (Decadron Injection -) 4 mg IVPUSH ONCE PRN PRN Reason: NAUSEA AND/OR VOMITING Enoxaparin Sodium (Lovenox -) 40 mg SQ DAILY [facility] Last Admin: 06/03/18 09:10 Dose: 40 mg Hydromorphone HCl (Dilaudid Graphite Disk Assembler -) 10 mg PREP COOK PREP COOK [facility]; Protocol Stop: 06/09/18 13:16 Last Admin: 06/03/18 07:45 Dose: 10 mg Lactated Ringer's (Lactated Ringers Solution) 1,000 ml in 1,000 mls @ 125 mls/ hr IV ASDIR [facility] Last Admin: 06/03/18 09:11 Dose: 125 mls/hr Lactated Ringer's (Lactated Ringers Solution) 1,000 ml IV [id number] [facility] Last Admin: 06/02/18 15:51 Dose: Not Given Pantoprazole Sodium (Protonix Iv) 40 mg IVPUSH DAILY [facility] Last Admin: 06/03/18 09:10 Dose: 40 mg Prochlorperazine Edisylate (Compazine Injection -) 10 mg IVPB Q4H PRN PRN Reason: NAUSEA AND/OR VOMITING - Objective Vital Signs: Vital Signs Temperature 97.9 F 06/03/18 10:00 Pulse Rate 89 06/03/18 10:00 Respiratory Rate 20 06/03/18 10:00 Blood Pressure 150/80 06/03/18 10:00 O2 Sat by Pulse Oximetry (%) 95 06/03/18 09:00 Constitutional: Yes: Well Nourished, No Distress, Calm Eyes: Yes: Conjunctiva Clear, EOM Intact HENT: Yes: Atraumatic, Normocephalic, Other (NGT in place, sumping) Gastrointestinal: Yes: Soft, Distention (mild), Hypoactive Bowel Sounds (nearly absent), Tenderness (incisional and also some diffuse mild tenderness, no R/G) Genitourinary: Yes: Zepeda Present. No: Hematuria Extremities: No: Cool, Cyanosis Integumentary: Yes: Incision (midline dressed), Other (few small soft tissue nodules noted on arms/skin - subcutaneous, small, raised, nontender, soft). No : Jaundice, Rash Wound/Incision: Yes: Dressing Dry and Intact (with minimal dried strikethrough) . No: Dressing Removed Neurological: Yes: Alert, Oriented Labs: CBC, BMP 06/03/18 06:30 06/03/18 06:30 Mg, Phos normal today CEA, Ca 19-9 pending Problem List - Problems (1) Small bowel obstruction Assessment/Plan: POD1 s/p laparotomy with small bowel resection, biopsy of small bowel implant/ nodule, peritoneal washings unclear significance of multiple small bowel nodules/implants on proximal SB tumor markers sent primary team to obtain pathology report from recent R thigh soft tissue mass resection continue NPO/NGT/IVF - pt feeling dry and urine still yellow, will bolus 1L and change fluids to maintenance continue Zepeda for now - would like to see urine contour sander and volume improve GI/DVT prophylaxis IV meds prn for HTN if needed periop antibiotics completed - no infectious concerns PREP COOK with prn IV tylenol for pain encourage OOB to chair and ambulation as able, use of IS routinely await pathology and cytology results discussed with Dr. Summers on the floor Code(s): K56.609 - UNSP INTESTNL OBST, UNSP TO PARTIAL VERSUS COMPLETE OBST (2) Hypertension Assessment/Plan: medicine to manage, IV meds prn Code(s): I10 - ESSENTIAL (PRIMARY) HYPERTENSION Qualifiers: Hypertension type: essential hypertension Qualified Code(s): I10 - Essential (primary) hypertension (3) GERD (gastroesophageal reflux disease) Assessment/Plan: continue PPI Code(s): K21.9 - GASTRO-ESOPHAGEAL REFLUX DISEASE WITHOUT ESOPHAGITIS Qualifiers: Esophagitis presence: without esophagitis Qualified Code(s): K21.9 - Gastro -esophageal reflux disease without esophagitis
[2018-06-03] MEDS ORDERED: SODIUM CHLORIDE 1,000 ML IV STA (13:07)
--- NOTE | 2018-06-03 14:25 | PN ---
Progress Note (short form) - Note Progress Note: Subjective: no fever or chills. pain is controlled. no N/V. no flatus . Objective: Vital Signs: Last Vital Signs Temp Pulse Resp BP Pulse Ox 97.9 F 89 20 150/80 95 06/03/18 10:00 06/03/18 10:00 06/03/18 10:00 06/03/18 10:00 06/03/18 09:00 Laboratory Results - last 24 hr 06/02/18 06/03/18 06/03/18 17:25 06:30 06:30 WBC 7.9 RBC 4.23 Hgb 11.1 L Hct 33.5 L D MCV 79.1 L MCH 26.2 MCHC 33.2 RDW 16.7 H Plt Count 237 MPV 8.9 Absolute Neuts (auto) 6.4 Neutrophils % 81.8 Lymphocytes % 5.9 L D Monocytes % 11.3 H D Eosinophils % 0.4 D Basophils % 0.6 Nucleated RBC % 0 Sodium 139 Potassium 3.8 Chloride 104 Carbon Dioxide 29 Anion Gap 6 L BUN 20 H Creatinine 0.8 Creat Clearance w eGFR 97.02 Random Glucose 101 Lactic Acid 1.5 Calcium 8.1 L Phosphorus 3.4 Magnesium 2.1 Total Bilirubin 0.7 AST 15 ALT 21 Alkaline Phosphatase 39 L Total Protein 5.3 L Albumin 2.7 L 06/03/18 06:30 WBC RBC Hgb Hct MCV MCH MCHC RDW Plt Count MPV Absolute Neuts (auto) Neutrophils % Lymphocytes % Monocytes % Eosinophils % Basophils % Nucleated RBC % Sodium Potassium Chloride Carbon Dioxide Anion Gap BUN Creatinine Creat Clearance w eGFR Random Glucose Lactic Acid 1.1 Calcium Phosphorus Magnesium Total Bilirubin AST ALT Alkaline Phosphatase Total Protein Albumin Physical Exam: NAD, awake, pleasant, and cooperative. MMM Cv: RRR, 2/6 Sm at LLSB. Lungs: CTAB Abd: soft, ND, NT, mid line surgical dressing. hypoactive BS. Ext: R groin with big surgical scar from medial side to lateral upper gluteal area. with no erythema or discharge . edema of R LE 1+. no tenderness. DP 2+ b/ l. No edema or erythema on LLE. A/P : 67 y/o man with h/o HTN, GERD, Ron's esophagus and a recent R thigh mass resection ( reportedly benign) , who presented with Abd pain . He was found to have acute high grade SBO . 1- High grade SBO: unclear etiology. s/p partial small bowel resection POD 1 doing well - NPO - IVF - ELECTRICAL SIGN SERVICER , tylenol - Appreciate surgical input . d/w dr. mauro - use incentive spirometer - on Monday, will call Mariya Hernandez and obtain path results form R thigh tumor. 2- H/o HTN: hold HCTZ . hydrating now . slight hypertension could be due pain 3- GERD: PPI 4- RLE edema , no DVT on US. 5- L5-s1 anterolisthesis: f/u with Dr. darnell as out pt. Dispo : HLOC Visit type - Emergency Visit Emergency Visit: Yes ED Registration Date: 06/02/18 Care time: The patient presented to the Emergency Department on the above date and was hospitalized for further evaluation of their emergent condition. - New Patient This patient is new to me today: No - Critical Care Critical Care patient: No
[2018-06-03] MEDS: D5-1/2NS+20 MEQ KCL - 20 MEQ/1,000 ML INFUS.BAG IV SCH (15:36)
[2018-06-04] MEDS: D5-1/2NS+20 MEQ KCL - 20 MEQ/1,000 ML INFUS.BAG IV SCH ×4 (00:49→17:55)
[2018-06-04] MEDS: HYDROmorphone *PCA* 10MG/50ML DISP.SYRIN PCA SCH (00:52)
[2018-06-04 07:29] LABS: MAGNESIUM 1.9 mg/dL (1.8-2.4); PHOSPHOROUS 2.2 mg/dL (2.5-4.9); POTASSIUM 3.8 mmol/L (3.5-5.1)
[2018-06-04] MEDS: ENOXAPARIN NA (PORCINE) 40 MG/0.4 ML DISP.SYRIN SQ SCH (09:00)
--- NOTE | 2018-06-04 09:26 | PN ---
Physical Exam: SUBJECTIVE: Patient seen and examined and bedside- no acute events overnight; patient states his pain is a 3/10 however he still has not passed flatus; denies any CP/SOB/N/V fevers or chills OBJECTIVE: Vital Signs Period Temp Pulse Resp BP Sys/Sanchez Pulse Ox Last 24 Hr 97.9 F-98.6 F 82-97 20-21 138-150/73-93 95 GENERAL: The patient is awake, alert, and fully oriented, in no acute distress. EYES: PEERLA; EOMI; no scleral icterus ENT: NGT in place; draining. NECK: no JVD; no lymphadenopathy. LUNGS: CTA B/L; no rales, rhonchi or wheezing. HEART: Regular rate and rhythm, S1, S2 without murmur, rub or gallop. ABDOMEN: Soft, nontender; nondistended mid line surgical dressing in place c/d/i , hypoactive BS EXTREMITIES: 2+ pulses, warm, well-perfused, trace edema of RLE; R groin with surgical scar from medial to later PSYCH: Normal mood, normal affect. SKIN: Warm, dry, normal turgor, no rashes or lesions noted Laboratory Results - last 24 hr 06/04/18 06:15 Potassium 3.8 Phosphorus 2.2 L Magnesium 1.9 Active Medications Generic Name Dose Route Start Last Admin Trade Name Art PRN Reason Stop Dose Admin Acetaminophen 1,000 mg 06/02/18 18:00 Ofirmev Injection - IVPB Q6H PRN PAIN LEVEL 6-10 Enoxaparin Sodium 40 mg 06/03/18 10:00 06/04/18 09:00 Lovenox - SQ 40 mg DAILY KARINA Administration Hydromorphone HCl 10 mg 06/02/18 15:02 06/04/18 00:52 Dilaudid Boat Puller - BAND SAW OPERATOR 06/09/18 13:16 10 mg BAND SAW OPERATOR KARINA Administration Protocol Lactated Ringer's 1,000 ml in 1,000 mls @ 125 mls/hr 06/02/18 15:02 06/03/18 09:11 Lactated Ringers Solution IV 125 mls/hr ASDIR KARINA Administration Potassium Chloride/Dextrose/Sod Cl 20 meq in 1,000 mls @ 125 mls/hr 06/03/18 14:07 06/04/18 08:54 D5-1/2ns+20 Meq Kcl - IV 125 mls/hr ASDIR KARINA Administration Pantoprazole Sodium 40 mg 06/03/18 10:00 06/03/18 09:10 Protonix Iv IVPUSH 40 mg DAILY K[facility]INA Administration Prochlorperazine Edisylate 10 mg 06/02/18 16:11 Compazine Injection - IVPB Q4H PRN NAUSEA AND/OR VOMITING ASSESSMENT/PLAN:67 y/o man with h/o HTN, GERD, Ron's esophagus and a recent R thigh mass resection ( reportedly benign) , who presented with Abd pain . He was found to have acute high grade SBO . #High grade SBO: unclear etiology. s/p partial small bowel resection POD #3 - NPO until flatus - D51/2 NS with 20meq KCL -LR @1225mls - 1gram IV tylneol q6h with morphine 2q4 PRN for breathrough -Dr. mauro on board - use incentive spirometer - # HTN: -holding HCTZ for now -will monitor hemodynamics and hydrate #GERD c/w PPI F/E/N LR @125mls monitor electrolytes NPO DVT PPX: lovenox Problem List - Problems (1) GERD (gastroesophageal reflux disease) Code(s): K21.9 - GASTRO-ESOPHAGEAL REFLUX DISEASE WITHOUT ESOPHAGITIS Qualifiers: Esophagitis presence: without esophagitis Qualified Code(s): K21.9 - Gastro -esophageal reflux disease without esophagitis (2) Hypertension Code(s): I10 - ESSENTIAL (PRIMARY) HYPERTENSION Qualifiers: Hypertension type: essential hypertension Qualified Code(s): I10 - Essential (primary) hypertension (3) Small bowel obstruction Code(s): K56.609 - UNSP INTESTNL OBST, UNSP TO PARTIAL VERSUS COMPLETE OBST Visit type - Emergency Visit Emergency Visit: Yes ED Registration Date: 06/02/18 Care time: The patient presented to the Emergency Department on the above date and was hospitalized for further evaluation of their emergent condition. - New Patient This patient is new to me today: Yes Date on this admission: 06/04/18 - Critical Care Critical Care patient: No
[2018-06-04] MEDS: PANTOPRAZOLE SODIUM 40 MG VIAL IVPUSH SCH (10:08)
[2018-06-04] MEDS ORDERED: MORPHINE SULFATE 2 MG/ML VIAL IVPUSH PRN ×2 (13:15→15:15)
[2018-06-04] MEDS: LACTATED RINGERS SOLUTION 1,000 ML/1,000 ML INFUS.BAG IV SCH (15:14)
[2018-06-04] MEDS ORDERED: SODIUM CHLORIDE 1,000 ML IV STA (16:09)
--- NOTE | 2018-06-04 16:15 | PN ---
Progress Note, Physician History of Present Illness: Pt s/p laparotomy with small bowel resection for obstruction with soft transition point but no clear etiology identified, also biopsy of small bowel nodule/implant, of which multiple were identified on proximal small bowel oconnor , peritoneal washings for cytology - seen and examined in bed. 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 C/O dry mouth, upper palate. No flatus or BM yet. NG with light sola drainage, few hundred ml in canister. Zepeda with yellow/sola urine in bag and tubing. No fevers. - Current Medication List Current Medications: Active Medications Acetaminophen (Ofirmev Injection -) 1,000 mg IVPB Q6H [facility] Enoxaparin Sodium (Lovenox -) 40 mg SQ DAILY [facility] Last Admin: 06/04/18 09:00 Dose: 40 mg Potassium Chloride/Dextrose/Sod Cl (D5-1/2ns+20 Meq Kcl -) 20 meq in 1,000 mls @ 125 mls/hr IV ASDIR [facility] Last Admin: 06/04/18 15:15 Dose: Not Given Morphine Sulfate (Morphine Sulfate) 2 mg IVPUSH Q4H PRN PRN Reason: PAIN LEVEL 7 - 10 Pantoprazole Sodium (Protonix Iv) 40 mg IVPUSH DAILY [facility] Last Admin: 06/04/18 10:08 Dose: 40 mg Prochlorperazine Edisylate (Compazine Injection -) 10 mg IVPB Q4H PRN PRN Reason: NAUSEA AND/OR VOMITING - Objective Vital Signs: Vital Signs Temperature 98.1 F 06/04/18 14:50 Pulse Rate 86 06/04/18 14:50 Respiratory Rate 18 06/04/18 09:31 Blood Pressure 150/75 06/04/18 14:50 O2 Sat by Pulse Oximetry (%) 97 06/04/18 09:00 Constitutional: Yes: Well Nourished, No Distress, Calm Eyes: Yes: Conjunctiva Clear, EOM Intact HENT: Yes: Atraumatic, Normocephalic, Other (NGT in place) Gastrointestinal: Yes: Soft, Distention (less than before, less tympany), Hypoactive Bowel Sounds, Tenderness (mainly incisional) Genitourinary: Yes: Zepeda Present ( dark yellow urine). No: Hematuria Extremities: No: Cool, Cyanosis Integumentary: Yes: Incision (healing R upper thigh). No: Jaundice, Skin Tear Wound/Incision: Yes: Rhiannon Intact (under dressing except one single gap between rhiannon with small clot on gauze, skin not completely apposed), Dressing Dry and Intact (with small areas of serosang strikethrough), Dressing Removed, Other (recovered gap between rhiannon with gauze and tape) Neurological: Yes: Alert, Oriented Labs: [facility] 06/04/18 06:15 Phos 2.2 Mg 1.9 no other new labs Problem List - Problems (1) Small bowel obstruction Assessment/Plan: POD2 s/p laparotomy with small bowel resection, biopsy of small bowel implant/ nodule, peritoneal washings unclear significance of multiple small bowel nodules/implants on proximal SB tumor markers pending pt has pathology report 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 Claudio Code(s): K56.609 - UNSP INTESTNL OBST, UNSP TO PARTIAL VERSUS COMPLETE OBST (2) Hypertension Assessment/Plan: medicine to manage, IV meds prn Code(s): I10 - ESSENTIAL (PRIMARY) HYPERTENSION Qualifiers: Hypertension type: essential hypertension Qualified Code(s): I10 - Essential (primary) hypertension (3) GERD (gastroesophageal reflux disease) Assessment/Plan: continue PPI Code(s): K21.9 - GASTRO-ESOPHAGEAL REFLUX DISEASE WITHOUT ESOPHAGITIS Qualifiers: Esophagitis presence: without esophagitis Qualified Code(s): K21.9 - Gastro -esophageal reflux disease without esophagitis
--- NOTE | 2018-06-04 17:08 | PN ---
Teaching Attending Note Name of Resident: Lelia Davalos ATTENDING PHYSICIAN STATEMENT I saw and evaluated the patient. I reviewed the resident's note and discussed the case with the resident. I agree with the resident's findings and plan as documented. SUBJECTIVE: No fever or chills. No SPAULDING , no Abd pain at time of evaluation . did not pass gas. no N/V OBJECTIVE: NAD, awake, pleasant, and cooperative. MMM Cv: RRR, 2/6 SM at LLSB. Lungs: CTAB Abd: soft, ND, NT, mid line surgical dressing with dry blood . hypoactive BS. Ext: R groin with big surgical scar from medial side to lateral upper gluteal area. with no erythema or discharge . trace edema. no tenderness. DP 2+ b/l. No edema or erythema on LLE. A/P : 67 y/o man with h/o HTN, GERD, Ron's esophagus and a recent R thigh mass resection ( reportedly benign) , who presented with Abd pain . He was found to have acute high grade SBO . 1- High grade SBO: unclear etiology. s/p partial small bowel resection POD 2 doing well - NPO . 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 hydrating now. slight hypertension could be due pain 3- GERD: PPI 4- L5-s1 anterolisthesis: f/u with Dr. darnell as out pt. Dispo : HLOC
[2018-06-04] MEDS: ACETAMINOPHEN 1000 MG/100 ML VIAL (NON FORMULARY) IVPB SCH (17:54)
[2018-06-05 00:08] LABS: CARCINOEMBRYONIC ANTIGEN 0.7 ng/mL (0.0-4.7)
[2018-06-05] MEDS: ACETAMINOPHEN 1000 MG/100 ML VIAL (NON FORMULARY) IVPB SCH ×4 (00:08→18:47)
[2018-06-05] MEDS: D5-1/2NS+20 MEQ KCL - 20 MEQ/1,000 ML INFUS.BAG IV SCH ×3 (02:03→21:20)
[2018-06-05 07:45] LABS: HEMATOCRIT 31.3 % (35.4-49); HEMOGLOBIN 10.2 GM/dL (11.7-16.9); MCH 26.2 pg (25.7-33.7); MCHC 32.7 g/dl (32.0-35.9); MEAN PLT VOLUME 8.4 fl (7.5-11.1); PLATELET COUNT 201 K/MM3 (134-434); RBC 3.92 M/mm3 (4.00-5.60); RDW 16.5 % (11.9-15.9); WHITE BLOOD COUNT 3.4 K/mm3 (4.0-10.0)
[2018-06-05 08:14] LABS: ANION GAP 5 MMOL/L (8-16); BLOOD UREA NITROGEN 12 mg/dL (7-18); CALCIUM 7.9 mg/dL (8.5-10.1); CHLORIDE 107 mmol/L (98-107); CO2 27 mmol/L (21-32); CREATININE 0.6 mg/dL (0.55-1.3); GLUCOSE,RANDOM 108 mg/dL (74-106); MAGNESIUM 2.2 mg/dL (1.8-2.4); PHOSPHOROUS 2.3 mg/dL (2.5-4.9); POTASSIUM 3.8 mmol/L (3.5-5.1); SODIUM 138 mmol/L (136-145)
--- NOTE | 2018-06-05 09:28 | PN ---
Progress Note (short form) - Note Progress Note: Pt doing well day 3 s/p exlap. 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
[2018-06-05] MEDS: ENOXAPARIN NA (PORCINE) 40 MG/0.4 ML DISP.SYRIN SQ SCH (09:43)
[2018-06-05] MEDS: PANTOPRAZOLE SODIUM 40 MG VIAL IVPUSH SCH (09:43)
--- NOTE | 2018-06-05 12:33 | PN ---
Physical Exam: SUBJECTIVE: Patient seen and examined at bedside- no acute events patient has passed flatus this morning; is having some incision site pain but other than that- denies any CP/SOB/N/V OBJECTIVE: Vital Signs Period Temp Pulse Resp BP Sys/Sanchez Pulse Ox Last 24 Hr 97.9 F-99.0 F 73-86 20-20 141-157/70-85 GENERAL: The patient is awake, alert, and fully oriented, in no acute distress. EYES: PEERLA: EOMI; no scleral icterus. NECK: no JVD: no lymphadenopathy LUNGS:CTA B/L; no rales, rhonchi or wheezing HEART: Regular rate and rhythm, S1, S2 without murmur, rub or gallop. ABDOMEN: Soft, midline incision withb rhiannon no erythema or drainage' rhiannon intact EXTREMITIES: 2+ pulses, warm, well-perfused, no edema. . PSYCH: Normal mood, normal affect. SKIN: Warm, dry, normal turgor, no rashes or lesions noted Laboratory Results - last 24 hr 06/03/18 06/05/18 06/05/18 06:30 07:00 07:00 WBC 3.4 L RBC 3.92 L Hgb 10.2 L Hct 31.3 L MCV 80.0 MCH 26.2 MCHC 32.7 RDW 16.5 H Plt Count 201 MPV 8.4 Sodium 138 Potassium 3.8 Chloride 107 Carbon Dioxide 27 Anion Gap 5 L BUN 12 Creatinine 0.6 Creat Clearance w eGFR 135.22 Random Glucose 108 H Calcium 7.9 L Phosphorus 2.3 L Magnesium 2.2 Carcinoembryonic Ag 0.7 CA 19-9 Antigen 1 Active Medications Generic Name Dose Route Start Last Admin Trade Name Freq PRN Reason Stop Dose Admin Acetaminophen 1,000 mg 06/04/18 18:00 06/05/18 05:59 Ofirmev Injection - IVPB 1,000 mg Q6H [facility]ARINA Administration Enoxaparin Sodium 40 mg 06/03/18 10:00 06/05/18 09:43 Lovenox - SQ 40 mg DAILY [facility]INA Administration Potassium Chloride/Dextrose/Sod Cl 20 meq in 1,000 mls @ 125 mls/hr 06/03/18 14:07 06/05/18 02:03 D5-1/2ns+20 Meq Kcl - IV 125 mls/hr ASDIR KARINA Administration Morphine Sulfate 2 mg 06/04/18 15:15 Morphine Sulfate IVPUSH Q4H PRN PAIN LEVEL 7 - 10 Pantoprazole Sodium 40 mg 06/03/18 10:00 06/05/18 09:43 Protonix Iv IVPUSH 40 mg DAILY [facility] Administration Prochlorperazine Edisylate 10 mg 06/02/18 16:11 Compazine Injection - IVPB Q4H PRN NAUSEA AND/OR VOMITING ASSESSMENT/PLAN: 67 y/o man with h/o HTN, GERD, Ron's esophagus and a recent R thigh mass resection ( reportedly benign) , who presented with Abd pain . He was found to have acute high grade SBO . #High grade SBO: unclear etiology. s/p partial small bowel resection POD #4 - patient has passed flatus this morning and hinojosa was removed yesterday - D51/2 NS with 20meq KCL -LR @125mls - 1gram IV tylneol q6h with morphine 2q4 PRN for breathrough -Dr. mauro on board; wants to keep NGT in today -monitor outout from NGT - use incentive spirometer - # HTN: -holding HCTZ for now -will monitor hemodynamics and hydrate #GERD c/w PPI F/E/N LR @125mls monitor electrolytes NPO DVT PPX: lovenox Problem List - Problems (1) GERD (gastroesophageal reflux disease) Code(s): K21.9 - GASTRO-ESOPHAGEAL REFLUX DISEASE WITHOUT ESOPHAGITIS Qualifiers: Esophagitis presence: without esophagitis Qualified Code(s): K21.9 - Gastro -esophageal reflux disease without esophagitis (2) Hypertension Code(s): I10 - ESSENTIAL (PRIMARY) HYPERTENSION Qualifiers: Hypertension type: essential hypertension Qualified Code(s): I10 - Essential (primary) hypertension (3) Small bowel obstruction Code(s): K56.609 - UNSP INTESTNL OBST, UNSP TO PARTIAL VERSUS COMPLETE OBST Visit type - Emergency Visit Emergency Visit: Yes ED Registration Date: 06/02/18 Care time: The patient presented to the Emergency Department on the above date and was hospitalized for further evaluation of their emergent condition. - New Patient This patient is new to me today: No - Critical Care Critical Care patient: No
--- NOTE | 2018-06-05 12:59 | PN ---
Progress Note, Physician History of Present Illness: Pt s/p laparotomy with small bowel resection for obstruction with soft transition point but no clear etiology identified, also biopsy of small bowel nodule/implant, of which multiple were identified on proximal small bowel oconnor , peritoneal washings for cytology - pathology pending. He is seen and examined sitting up in chair. He reports feeling ok, pain controlled with standing Tylenol, has ambulated but not much yet today. C/O dry mouth, tired of NGT. Passed flatus but no BM yet. NG with translucent/yellowish drainage, 300 ml in canister since ~8-9am per nurse. 1800ml out 24 hrs till 7am. Voiding in urinal, but marginal output, still yellow per pt. Can now get about 1000ml on IS. - Current Medication List Current Medications: Active Medications Acetaminophen (Ofirmev Injection -) 1,000 mg IVPB Q6H [facility] Last Admin: 06/05/18 12:31 Dose: 1,000 mg Enoxaparin Sodium (Lovenox -) 40 mg SQ DAILY [facility] Last Admin: 06/05/18 09:43 Dose: 40 mg Potassium Chloride/Dextrose/Sod Cl (D5-1/2ns+20 Meq Kcl -) 20 meq in 1,000 mls @ 125 mls/hr IV ASDIR [facility] Last Admin: 06/05/18 12:31 Dose: 125 mls/hr Morphine Sulfate (Morphine Sulfate) 2 mg IVPUSH Q4H PRN PRN Reason: PAIN LEVEL 7 - 10 Pantoprazole Sodium (Protonix Iv) 40 mg IVPUSH DAILY [facility] Last Admin: 06/05/18 09:43 Dose: 40 mg Prochlorperazine Edisylate (Compazine Injection -) 10 mg IVPB Q4H PRN PRN Reason: NAUSEA AND/OR VOMITING - Objective Vital Signs: Vital Signs Temperature 97.9 F 06/05/18 11:08 Pulse Rate 73 06/05/18 11:08 Respiratory Rate 20 06/05/18 11:08 Blood Pressure 157/85 06/05/18 11:08 O2 Sat by Pulse Oximetry (%) 97 06/04/18 09:00 Constitutional: Yes: Well Nourished, No Distress, Calm Eyes: Yes: Conjunctiva Clear, EOM Intact HENT: Yes: Atraumatic, Normocephalic, Other (NGT in place) Gastrointestinal: Yes: Soft, Distention (mild,), Hypoactive Bowel Sounds, Tenderness (mild incisional only) Genitourinary: No: Zepeda Present, Incontinence Extremities: No: Cool, Cyanosis Integumentary: Yes: Incision (midline w/rhiannon). No: Jaundice, Rash Wound/Incision: Yes: Clean/Dry, Well Approximated (skin gap between 2 rhiannon not apparent - if any oozing or drainage in region, can re-cover with small gauze or bandaid prn), Byron Intact, Dressing Dry and Intact (over lower portion - tiny dried blood on gauze underneath), Dressing Removed (and left open to air). 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 Davalos Code(s): K56.609 - UNSP INTESTNL OBST, UNSP TO PARTIAL VERSUS COMPLETE OBST (2) Hypertension Assessment/Plan: medicine to manage, IV meds prn Code(s): I10 - ESSENTIAL (PRIMARY) HYPERTENSION Qualifiers: Hypertension type: essential hypertension Qualified Code(s): I10 - Essential (primary) hypertension (3) GERD (gastroesophageal reflux disease) Assessment/Plan: continue PPI Code(s): K21.9 - GASTRO-ESOPHAGEAL REFLUX DISEASE WITHOUT ESOPHAGITIS Qualifiers: Esophagitis presence: without esophagitis Qualified Code(s): K21.9 - Gastro -esophageal reflux disease without esophagitis
--- NOTE | 2018-06-05 14:27 | PN ---
Teaching Attending Note Name of Resident: Lelia Davalos ATTENDING PHYSICIAN STATEMENT I saw and evaluated the patient. I reviewed the resident's note and discussed the case with the resident. I agree with the resident's findings and plan as documented. SUBJECTIVE: No fever or chills. No SPAULDING , no ABd pain. + flatus. no N/V . OBJECTIVE: NAD, awake, pleasant, and cooperative. MMM Cv: RRR Lungs: CTAB Abd: soft, ND, NT,mid line surgical scar with rhiannon . 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 He was found to have acute high grade SBO . 1- High grade SBO: unclear etiology. s/p partial small bowel resection POD 3 doing well . + flatus . still considerable amount NG suction - NPO. NGT to suction - IVF - pain control -path report pending - incentive spirometer - replete electrolytes 2- H/o HTN: hold HCTZ. hydrating now. if needed can give PRN IV meds 3- GERD: PPI 4- L5-s1 anterolisthesis: f/u with Dr. Gill as out pt. Dispo : HLOC
[2018-06-06] MEDS: ACETAMINOPHEN 1000 MG/100 ML VIAL (NON FORMULARY) IVPB SCH ×5 (00:21→23:59)
[2018-06-06] MEDS: D5-1/2NS+20 MEQ KCL - 20 MEQ/1,000 ML INFUS.BAG IV SCH ×3 (06:43→15:08)
[2018-06-06] MEDS ORDERED: POTASSIUM PHOSPHATE 15 MM in SODIUM CHLORIDE 250 ML IVPB ONE (07:10)
[2018-06-06 07:26] LABS: HEMATOCRIT 33.9 % (35.4-49); HEMOGLOBIN 11.5 GM/dL (11.7-16.9); MCH 27.1 pg (25.7-33.7); MCHC 34.1 g/dl (32.0-35.9); MEAN CELL VOLUME 79.5 fl (80-96); MEAN PLT VOLUME 8.6 fl (7.5-11.1); PLATELET COUNT 269 K/MM3 (134-434); RBC 4.26 M/mm3 (4.00-5.60); RDW 16.4 % (11.9-15.9)
[2018-06-06 07:40] LABS: ALBUMIN 2.9 g/dl (3.4-5.0); ALK PHOS 70 U/L (45-117); ANION GAP 7 MMOL/L (8-16); BILIRUBIN,TOTAL 0.6 mg/dL (0.2-1); BLOOD UREA NITROGEN 9 mg/dL (7-18); CALCIUM 8.3 mg/dL (8.5-10.1); CHLORIDE 108 mmol/L (98-107); CO2 25 mmol/L (21-32); CREATININE 0.6 mg/dL (0.55-1.3); GLUCOSE,RANDOM 93 mg/dL (74-106); MAGNESIUM 2.1 mg/dL (1.8-2.4); PHOSPHOROUS 2.5 mg/dL (2.5-4.9); POTASSIUM 3.6 mmol/L (3.5-5.1); SGOT/AST 33 U/L (15-37); SGPT/ALT 40 U/L (13-61); SODIUM 140 mmol/L (136-145)
--- NOTE | 2018-06-06 08:00 | PN ---
Physical Exam: SUBJECTIVE: Patient seen and examined at bedside- no acute events overnight; patient still has not had a bowel movement yet but is passing a lot of gas. he states he is feeling better and is anxious to get the NGT out; denies any CP/SOB /N/V fevers or chills OBJECTIVE: Vital Signs Period Temp Pulse Resp BP Sys/Sanchez Pulse Ox Last 24 Hr 97.2 F-98.8 F 71-73 20-20 147-157/75-85 96 GENERAL: The patient is awake, alert, and fully oriented, in no acute distress. EYES: PEELRA: EOMI; no scleral icterus NECK: no JVD; no lymphadenopathy LUNGS: CTA B/L; no rales, rhonchi or wheezing HEART: Regular rate and rhythm, S1, S2 without murmur, rub or gallop. ABDOMEN: soft; midline incision with rhiannon slight bruising midline; hypoactive BS EXTREMITIES: 2+ pulses, warm, well-perfused, no edema. . PSYCH: Normal mood, normal affect. SKIN: Warm, dry, normal turgor, no rashes or lesions noted Laboratory Results - last 24 hr 06/05/18 06/05/18 06/06/18 07:00 07:00 07:00 WBC 3.4 L 5.0 RBC 3.92 L 4.26 Hgb 10.2 L 11.5 L Hct 31.3 L 33.9 L MCV 80.0 79.5 L MCH 26.2 27.1 MCHC 32.7 34.1 RDW 16.5 H 16.4 H Plt Count 201 269 D MPV 8.4 8.6 Sodium 138 Potassium 3.8 Chloride 107 Carbon Dioxide 27 Anion Gap 5 L BUN 12 Creatinine 0.6 Creat Clearance w eGFR 135.22 Random Glucose 108 H Calcium 7.9 L Phosphorus 2.3 L Magnesium 2.2 Total Bilirubin AST ALT Alkaline Phosphatase Total Protein Albumin 06/06/18 07:00 WBC RBC Hgb Hct MCV MCH MCHC RDW Plt Count MPV Sodium 140 Potassium 3.6 Chloride 108 H Carbon Dioxide 25 Anion Gap 7 L BUN 9 Creatinine 0.6 Creat Clearance w eGFR 135.22 Random Glucose 93 Calcium 8.3 L Phosphorus 2.5 Magnesium 2.1 Total Bilirubin 0.6 AST 33 ALT 40 Alkaline Phosphatase 70 Total Protein 6.0 L Albumin 2.9 L Active Medications Generic Name Dose Route Start Last Admin Trade Name Freq PRN Reason Stop Dose Admin Acetaminophen 1,000 mg 06/04/18 18:00 06/06/18 06:31 Ofirmev Injection - IVPB 1,000 mg Q6H [facility]INA Administration Enoxaparin Sodium 40 mg 06/03/18 10:00 06/05/18 09:43 Lovenox - SQ 40 mg DAILY [facility] Administration Potassium Chloride/Dextrose/Sod Cl 20 meq in 1,000 mls @ 125 mls/hr 06/03/18 14:07 06/06/18 06:43 D5-1/2ns+20 Meq Kcl - IV 125 mls/hr ASDIR [facility]INA Administration Potassium Phosphate 15 mm/ 255 mls @ 62.5 mls/hr 06/06/18 07:10 Sodium Chloride IVPB 06/06/18 11:14 ONCE ONE Morphine Sulfate 2 mg 06/04/18 15:15 Morphine Sulfate IVPUSH Q4H PRN PAIN LEVEL 7 - 10 Pantoprazole Sodium 40 mg 06/03/18 10:00 06/05/18 09:43 Protonix Iv IVPUSH 40 mg DAILY [facility] Administration Prochlorperazine Edisylate 10 mg 06/02/18 16:11 Compazine Injection - IVPB Q4H PRN NAUSEA AND/OR VOMITING ASSESSMENT/PLAN: 67 y/o man with h/o HTN, GERD, Ron's esophagus and a recent R thigh mass resection ( reportedly benign) , who presented with Abd pain . He was found to have acute high grade SBO . #High grade SBO: unclear etiology. s/p partial small bowel resection POD #5 - patient has passed flatus this morning and hinojosa was removed yesterday - 1gram IV tylneol q6h with morphine 2q4 PRN for breathrough -Dr. mauro on board; wants to keep NGT in and will reevaluate but can chew gum -monitor outout from NGT - use incentive spirometer - # HTN: -holding HCTZ for now -will monitor hemodynamics and hydrate #GERD c/w PPI F/E/N monitor electrolytes NPO DVT PPX: lovenox Problem List - Problems (1) GERD (gastroesophageal reflux disease) Code(s): K21.9 - GASTRO-ESOPHAGEAL REFLUX DISEASE WITHOUT ESOPHAGITIS Qualifiers: Esophagitis presence: without esophagitis Qualified Code(s): K21.9 - Gastro -esophageal reflux disease without esophagitis (2) Hypertension Code(s): I10 - ESSENTIAL (PRIMARY) HYPERTENSION Qualifiers: Hypertension type: essential hypertension Qualified Code(s): I10 - Essential (primary) hypertension (3) Small bowel obstruction Code(s): K56.609 - UNSP INTESTNL OBST, UNSP TO PARTIAL VERSUS COMPLETE OBST Visit type - Emergency Visit Emergency Visit: Yes ED Registration Date: 06/02/18 Care time: The patient presented to the Emergency Department on the above date and was hospitalized for further evaluation of their emergent condition. - New Patient This patient is new to me today: No - Critical Care Critical Care patient: No
--- NOTE | 2018-06-06 08:02 | PN ---
Teaching Attending Note Name of Resident: Lelia Davalos ATTENDING PHYSICIAN STATEMENT I saw and evaluated the patient. I reviewed the resident's note and discussed the case with the resident. I agree with the resident's findings and plan as documented. SUBJECTIVE: Patient is comfortable with no acute distress. OBJECTIVE: Vital Signs Temperature 98.8 F 06/06/18 05:51 Pulse Rate 72 06/06/18 05:51 Respiratory Rate 20 06/06/18 05:51 Blood Pressure 147/75 06/06/18 05:51 O2 Sat by Pulse Oximetry (%) 96 06/05/18 23:54 GENERAL: The patient is awake, alert, and fully oriented, in NAD. NG tube in place draining bile. EYES: PERRLA: EOMI; no scleral icterus. NECK: no JVD: no lymphadenopathy LUNGS: CTA B/L; no rales, rhonchi or wheezing HEART: RRR, S1S2 positive, without murmur, rub or gallop. ABDOMEN: Soft, midline incision with rhiannon no erythema or drainage rhiannon intact EXTREMITIES: 2+ pulses, warm, well-perfused, no edema. PSYCH: Normal mood, normal affect. SKIN: Warm, dry, normal turgor, no rashes or lesions noted CBCD WBC 5.0 K/mm3 (4.0-10.0) 06/06/18 07:00 RBC 4.26 M/mm3 (4.00-5.60) 06/06/18 07:00 Hgb 11.5 GM/dL (11.7-16.9) L 06/06/18 07:00 Hct 33.9 % (35.4-49) L 06/06/18 07:00 MCV 79.5 fl (80-96) L 06/06/18 07:00 MCHC 34.1 g/dl (32.0-35.9) 06/06/18 07:00 RDW 16.4 % (11.9-15.9) H 06/06/18 07:00 Plt Count 269 K/MM3 (134-434) D 06/06/18 07:00 MPV 8.6 fl (7.5-11.1) 06/06/18 07:00 CMP Sodium 140 mmol/L (136-145) 06/06/18 07:00 Potassium 3.6 mmol/L (3.5-5.1) 06/06/18 07:00 Chloride 108 mmol/L (98-107) H 06/06/18 07:00 Carbon Dioxide 25 mmol/L (21-32) 06/06/18 07:00 Anion Gap 7 MMOL/L (8-16) L 06/06/18 07:00 BUN 9 mg/dL (7-18) 06/06/18 07:00 Creatinine 0.6 mg/dL (0.55-1.3) 06/06/18 07:00 Creat Clearance w eGFR 135.22 (>60) 06/06/18 07:00 Random Glucose 93 mg/dL (74-106) 06/06/18 07:00 Calcium 8.3 mg/dL (8.5-10.1) L 06/06/18 07:00 Total Bilirubin 0.6 mg/dL (0.2-1) 06/06/18 07:00 AST 33 U/L (15-37) 06/06/18 07:00 ALT 40 U/L (13-61) 06/06/18 07:00 Alkaline Phosphatase 70 U/L (45-117) 06/06/18 07:00 Total Protein 6.0 g/dl (6.4-8.2) L 06/06/18 07:00 Albumin 2.9 g/dl (3.4-5.0) L 06/06/18 07:00 Current Medications Generic Name Dose Route Start Last Admin Trade Name Freq PRN Reason Stop Dose Admin Acetaminophen 1,000 mg 06/04/18 18:00 06/06/18 06:31 Ofirmev Injection - IVPB 1,000 mg Q6H KARINA Administration Enoxaparin Sodium 40 mg 06/03/18 10:00 06/05/18 09:43 Lovenox - SQ 40 mg DAILY KARINA Administration Potassium Chloride/Dextrose/Sod Cl 20 meq in 1,000 mls @ 125 mls/hr 06/03/18 14:07 06/06/18 06:43 D5-1/2ns+20 Meq Kcl - IV 125 mls/hr ASDIR KARINA Administration Potassium Phosphate 15 mm/ 255 mls @ 62.5 mls/hr 06/06/18 07:10 Sodium Chloride IVPB 06/06/18 11:14 ONCE ONE Morphine Sulfate 2 mg 06/04/18 15:15 Morphine Sulfate IVPUSH Q4H PRN PAIN LEVEL 7 - 10 Pantoprazole Sodium 40 mg 06/03/18 10:00 06/05/18 09:43 Protonix Iv IVPUSH 40 mg DAILY KARINA Administration Prochlorperazine Edisylate 10 mg 06/02/18 16:11 Compazine Injection - IVPB Q4H PRN NAUSEA AND/OR VOMITING Home Medications Medication Instructions Recorded Hydrochlorothiazide 20 mg PO DAILY 06/02/18 Pantoprazole Sodium [Protonix] 40 mg PO DAILY 06/03/18 ASSESSMENT AND PLAN: Patient is a 67yo man with no PMHx HTN, GERD, Ron's esophagus and a 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 He was found to have acute high grade SBO . # POD #4 s/p partial small bowel resection due to High grade SBO: unclear etiology. continue NPO since still NG-tube is draining. will be clampped later today to reevalaute. continue NPO. NGT to suction, pain control , path report pending. continue incentive spirometer #Hx of HTN: hold HCTZ. On IVF with potassium supplement #Hx of GERD: continue PPI #L5-s1 anterolisthesis: f/u with Dr. Gill as out pt. DVt px: SCds , lovenox
[2018-06-06] MEDS: ENOXAPARIN NA (PORCINE) 40 MG/0.4 ML DISP.SYRIN SQ SCH (10:55)
[2018-06-06] MEDS: PANTOPRAZOLE SODIUM 40 MG VIAL IVPUSH SCH (10:55)
[2018-06-06] MEDS: LACTATED RINGERS SOLUTION 1,000 ML/1,000 ML INFUS.BAG IV SCH ×2 (11:11→11:12)
[2018-06-06] MEDS: HYDROmorphone *PCA* 10MG/50ML DISP.SYRIN PCA SCH (11:12)
--- NOTE | 2018-06-06 12:11 | PN ---
Progress Note, Physician History of Present Illness: Pt s/p laparotomy with small bowel resection for obstruction with soft transition point but no clear etiology identified, also biopsy of small bowel nodules/implant, of which multiple were identified on proximal small bowel oconnor , peritoneal washings for cytology - pathology pending. He is seen and examined in bed. He reports feeling ok, pain controlled with standing Tylenol, ambulating , up to chair frequently. Passed flatus but no BM yet. Chewing gum periodically. NG with clearer, translucent/yellow drainage, canister changed this morning since yesterday morning (~1500/day). Voiding ok. - Current Medication List Current Medications: Active Medications Acetaminophen (Ofirmev Injection -) 1,000 mg IVPB Q6H [facility] Last Admin: 06/06/18 06:31 Dose: 1,000 mg Enoxaparin Sodium (Lovenox -) 40 mg SQ DAILY [facility] Last Admin: 06/06/18 10:55 Dose: 40 mg Potassium Chloride/Dextrose/Sod Cl (D5-1/2ns+20 Meq Kcl -) 20 meq in 1,000 mls @ 125 mls/hr IV ASDIR [facility] Last Admin: 06/06/18 06:43 Dose: 125 mls/hr Morphine Sulfate (Morphine Sulfate) 2 mg IVPUSH Q4H PRN PRN Reason: PAIN LEVEL 7 - 10 Pantoprazole Sodium (Protonix Iv) 40 mg IVPUSH DAILY [facility] Last Admin: 06/06/18 10:55 Dose: 40 mg Prochlorperazine Edisylate (Compazine Injection -) 10 mg IVPB Q4H PRN PRN Reason: NAUSEA AND/OR VOMITING - Objective Vital Signs: Vital Signs Temperature 98 F 06/06/18 10:17 Pulse Rate 72 06/06/18 10:17 Respiratory Rate 19 06/06/18 10:17 Blood Pressure 152/79 06/06/18 10:17 O2 Sat by Pulse Oximetry (%) 96 06/06/18 09:00 Constitutional: Yes: Well Nourished, No Distress, Calm Eyes: Yes: Conjunctiva Clear, EOM Intact HENT: Yes: Atraumatic, Normocephalic, Other (NGT in place) Gastrointestinal: Yes: Soft, Distention (mild/little, less tympany), Hypoactive Bowel Sounds, Tenderness (mild incisional) Extremities: No: Cool, Cyanosis Integumentary: Yes: Bruising (few areas of bruising around incision/edges, mild) , Incision (midline with rhiannon). No: Jaundice, Rash Wound/Incision: Yes: Clean/Dry, Well Approximated, [place] Intact, Open to air. No: Draining, Reddened Neurological: Yes: Alert, Oriented Labs: CBC, BMP 06/06/18 07:00 06/06/18 07:00 CMP Sodium 140 mmol/L (136-145) 06/06/18 07:00 Potassium 3.6 mmol/L (3.5-5.1) 06/06/18 07:00 Chloride 108 mmol/L (98-107) H 06/06/18 07:00 Carbon Dioxide 25 mmol/L (21-32) 06/06/18 07:00 Anion Gap 7 MMOL/L (8-16) L 06/06/18 07:00 BUN 9 mg/dL (7-18) 06/06/18 07:00 Creatinine 0.6 mg/dL (0.55-1.3) 06/06/18 07:00 Creat Clearance w eGFR 135.22 (>60) 06/06/18 07:00 Random Glucose 93 mg/dL (74-106) 06/06/18 07:00 Lactic Acid 1.1 mmol/L (0.4-2.0) 06/03/18 06:30 Calcium 8.3 mg/dL (8.5-10.1) L 06/06/18 07:00 Phosphorus 2.5 mg/dL (2.5-4.9) 06/06/18 07:00 Magnesium 2.1 mg/dL (1.8-2.4) 06/06/18 07:00 Total Bilirubin 0.6 mg/dL (0.2-1) 06/06/18 07:00 AST 33 U/L (15-37) 06/06/18 07:00 ALT 40 U/L (13-61) 06/06/18 07:00 Alkaline Phosphatase 70 U/L (45-117) 06/06/18 07:00 Total Protein 6.0 g/dl (6.4-8.2) L 06/06/18 07:00 Albumin 2.9 g/dl (3.4-5.0) L 06/06/18 07:00 Lipase 117 U/L (73-393) 06/02/18 03:00 Carcinoembryonic Ag 0.7 ng/mL (0.0-4.7) 06/03/18 06:30 CA 19-9 Antigen 1 U/mL (0-35) 06/03/18 06:30 Problem List - Problems (1) Small bowel obstruction Assessment/Plan: POD4 s/p laparotomy with small bowel resection, biopsy of small bowel implant/ nodule, peritoneal washings unclear significance of multiple small bowel nodules/implants on proximal SB tumor markers normal, path and cytology pending pathology report from March 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 Davalos Code(s): K56.609 - UNSP INTESTNL OBST, UNSP TO PARTIAL VERSUS COMPLETE OBST (2) Hypertension Assessment/Plan: medicine to manage, IV meds prn Code(s): I10 - ESSENTIAL (PRIMARY) HYPERTENSION Qualifiers: Hypertension type: essential hypertension Qualified Code(s): I10 - Essential (primary) hypertension (3) GERD (gastroesophageal reflux disease) Assessment/Plan: continue PPI Code(s): K21.9 - GASTRO-ESOPHAGEAL REFLUX DISEASE WITHOUT ESOPHAGITIS Qualifiers: Esophagitis presence: without esophagitis Qualified Code(s): K21.9 - Gastro -esophageal reflux disease without esophagitis
[2018-06-06 16:24] VITALS: BMI 26.8
--- NOTE | 2018-06-06 16:35 | PATH ---
Cytology Non-Gynecological Report Patient Name: SWAPNA CASTRO Med. Rec. #: [id number] /Age/Gender: 1950 (Age: 67) / M Account: [id number] Location: [address] [place] [address] Taken: 06/02/2018 Received: 06/04/2018 Reported: 06/06/2018 Physicians: PHYSICIAN EMERGENCY DEPT Specimen(s) Received PERITONEAL WASHING Clinical History Small bowel serosal nodules Final Diagnosis PERITONEAL WASHING FOR CYTOLOGY: SATISFACTORY FOR EVALUATION. NEGATIVE FOR MALIGNANT CELLS. RARE DEGENERATED MESOTHELIAL CELLS AND SCANT SMALL FRAGMENTS OF FIBROADIPOSE TISSUE IN HEMORRHAGIC BACKGROUND. Comment: See concurrent material [id number]. Electronically Signed Courtney García M.D. Gross Description Approximately 25cc of bloody fluid received fresh. One cytofunnel prepared and Pap stained. One cellblock prepared
[2018-06-07] MEDS: D5-1/2NS+20 MEQ KCL - 20 MEQ/1,000 ML INFUS.BAG IV SCH ×2 (03:02→22:40)
[2018-06-07] MEDS: ACETAMINOPHEN 1000 MG/100 ML VIAL (NON FORMULARY) IVPB SCH ×3 (06:25→18:24)
[2018-06-07 07:39] LABS: HEMATOCRIT 31.5 % (35.4-49); HEMOGLOBIN 10.1 GM/dL (11.7-16.9); MCHC 32.1 g/dl (32.0-35.9); MEAN CELL VOLUME 78.1 fl (80-96); MEAN PLT VOLUME 8.3 fl (7.5-11.1); PLATELET COUNT 252 K/MM3 (134-434); RBC 4.04 M/mm3 (4.00-5.60); RDW 16.3 % (11.9-15.9); WHITE BLOOD COUNT 5.7 K/mm3 (4.0-10.0)
[2018-06-07 08:00] LABS: ANION GAP 6 MMOL/L (8-16); BLOOD UREA NITROGEN 9 mg/dL (7-18); CALCIUM 8.6 mg/dL (8.5-10.1); CHLORIDE 108 mmol/L (98-107); CO2 25 mmol/L (21-32); CREATININE 0.5 mg/dL (0.55-1.3); GLUCOSE,RANDOM 86 mg/dL (74-106); MAGNESIUM 2.1 mg/dL (1.8-2.4); PHOSPHOROUS 2.9 mg/dL (2.5-4.9); POTASSIUM 3.7 mmol/L (3.5-5.1); SODIUM 139 mmol/L (136-145)
--- NOTE | 2018-06-07 09:00 | PN ---
Physical Exam: SUBJECTIVE: Patient seen and examined at bedside- no acute events overmngiht patient is complaining of slight gas pains and some discomfort. passing less flatus than yesterday; denies any CP/SOB/N/V OBJECTIVE: Vital Signs Period Temp Pulse Resp BP Sys/Sanchez Pulse Ox Last 24 Hr 97.5 F-98.7 F 70-73 19-20 147-162/71-79 98 GENERAL: The patient is awake, alert, and fully oriented, in no acute distress. EYES: PEERLA: EOMI: no scleral icterus NECK:no JVD; no lymphadenopathy LUNGS: CTA B/L; no rales, rhonchi or wheezing HEART: Regular rate and rhythm, S1, S2 without murmur, rub or gallop. ABDOMEN: oft; midline incision with rhiannon slight bruising midline; hypoactive BS EXTREMITIES: 2+ pulses, warm, well-perfused, no edema. PSYCH: Normal mood, normal affect. SKIN: Warm, dry, normal turgor, no rashes or lesions noted Laboratory Results - last 24 hr 06/07/18 06/07/18 06:50 06:50 WBC 5.7 RBC 4.04 Hgb 10.1 L Hct 31.5 L MCV 78.1 L MCH 25.0 L MCHC 32.1 RDW 16.3 H Plt Count 252 MPV 8.3 Sodium 139 Potassium 3.7 Chloride 108 H Carbon Dioxide 25 Anion Gap 6 L BUN 9 Creatinine 0.5 L Creat Clearance w eGFR 166.88 Random Glucose 86 Calcium 8.6 Phosphorus 2.9 Magnesium 2.1 Active Medications Generic Name Dose Route Start Last Admin Trade Name Freq PRN Reason Stop Dose Admin Acetaminophen 1,000 mg 06/04/18 18:00 06/07/18 06:25 Ofirmev Injection - IVPB 1,000 mg Q6H KARINA Administration Enoxaparin Sodium 40 mg 06/03/18 10:00 06/06/18 10:55 Lovenox - SQ 40 mg DAILY [facility]INA Administration Potassium Chloride/Dextrose/Sod Cl 20 meq in 1,000 mls @ 125 mls/hr 06/03/18 14:07 06/07/18 03:02 D5-1/2ns+20 Meq Kcl - IV 125 mls/hr ASDIR KARINA Administration Morphine Sulfate 2 mg 06/04/18 15:15 Morphine Sulfate IVPUSH Q4H PRN PAIN LEVEL 7 - 10 Pantoprazole Sodium 40 mg 06/03/18 10:00 06/06/18 10:55 Protonix Iv IVPUSH 40 mg DAILY [facility] Administration Prochlorperazine Edisylate 10 mg 06/02/18 16:11 Compazine Injection - IVPB Q4H PRN NAUSEA AND/OR VOMITING ASSESSMENT/PLAN: 67 y/o man with h/o HTN, GERD, Ron's esophagus and a recent R thigh mass resection ( reportedly benign) , who presented with Abd pain . He was found to have acute high grade SBO . #High grade SBO: unclear etiology. s/p partial small bowel resection POD #6 - patient having slightly less flatus today - 1gram IV tylneol q6h with morphine 2q4 PRN for breathrough -Dr. mauro on board; wants to keep NGT in and will reevaluate -monitor outout from NGT - use incentive spirometer - # HTN: -holding HCTZ for now -will monitor hemodynamics and hydrate #GERD c/w PPI F/E/N monitor electrolytes NPO DVT PPX: lovenox Problem List - Problems (1) GERD (gastroesophageal reflux disease) Code(s): K21.9 - GASTRO-ESOPHAGEAL REFLUX DISEASE WITHOUT ESOPHAGITIS Qualifiers: Esophagitis presence: without esophagitis Qualified Code(s): K21.9 - Gastro -esophageal reflux disease without esophagitis (2) Hypertension Code(s): I10 - ESSENTIAL (PRIMARY) HYPERTENSION Qualifiers: Hypertension type: essential hypertension Qualified Code(s): I10 - Essential (primary) hypertension (3) Small bowel obstruction Code(s): K56.609 - UNSP INTESTNL OBST, UNSP TO PARTIAL VERSUS COMPLETE OBST Visit type - Emergency Visit Emergency Visit: Yes ED Registration Date: 06/02/18 Care time: The patient presented to the Emergency Department on the above date and was hospitalized for further evaluation of their emergent condition. - New Patient This patient is new to me today: No - Critical Care Critical Care patient: No
[2018-06-07] MEDS: PANTOPRAZOLE SODIUM 40 MG VIAL IVPUSH SCH (09:38)
[2018-06-07] MEDS: ENOXAPARIN NA (PORCINE) 40 MG/0.4 ML DISP.SYRIN SQ SCH (09:38)
--- NOTE | 2018-06-07 11:00 | PATH ---
Surgical Pathology Report Patient Name: SWAPNA CASTRO [facility]. Rec. #: [id number] /Age/Gender: 1950 (Age: 67) / M Account: [id number] Location: [address] [place] [address]/[facility] Taken: 06/02/2018 Received: 06/04/2018 Reported: 06/07/2018 Physicians: Shu Frances M.D. Specimen(s) Received A: PROXIMAL JEJUNAL IMPLANT B: PORTION OF PROXIMAL SMALL BOWEL Clinical History Small bowel obstruction Final Diagnosis A. PROXIMAL JEJUNAL IMPLANT, EXCISION: GASTROINTESTINAL STROMAL TUMOR (GIST), SPINDLE CELL TYPE. TUMOR MEASURES 1 CM IN GROSS DIMENSION. MITOTIC RATE: <1/5 MM2 (G1, LOW GRADE). NO NECROSIS IDENTIFIED. SEE PART B. B. PORTION OF PROXIMAL SMALL BOWEL, JEJENUM, RESECTION: GASTROINTESTINAL STROMAL TUMOR (GIST), SPINDLE CELL TYPE. TUMOR INVOLVES MUSCULARIS PROPIA, MEASURING 1 CM IN GREATEST MICROSCOPIC DIMENSION. MITOTIC RATE: 3/5 MM2 (G1, LOW GRADE). NO NECROSIS IDENTIFIED. NO LYMPHOVASCULAR INVASION IDENTIFIED. SURGICAL MARGINS ARE NEGATIVE. SMALL NEUROFIBROMA PRESENT. SEE COMMENT. SEE SUMMARY BELOW. Comment: In part B, the tumor involves the muscularis propria. Histologic sections show a cellular proliferation of bland spindle cells with pale to eosinophilic cytoplasm, and occasional perinuclear vacuoles. Mitotic rate is 3/5 MM2 (G1, Low grade). No necrosis is identified. Immunohistochemical stains performed at [place], [place] ([id number]) and interpreted at [facility] show the tumor is positive for CD117, DOG-1, focally positive with SMA (weak) and S100; while negative for AE1/3, desmin, and SOX10. Proliferative marker (ki-67) is low. Tumor in both parts (A & B) are morphologically similar. Overall histomorphology and immunophenotype supports the diagnosis of gastrointestinal stromal tumor. A small pericolonic neurofibroma noted is positive for S100, while negative for AE1/3 and SMA (part B). Two (2) GIST tumors are sampled. Although these may represent multiple primary tumors, which can be seen in the setting of neurofibromatosis type 1 or familial GIST syndrome; the possibility of metastasis cannot be completely excluded. Presence of additional multiple clinical subserosal intestinal nodules noted. Suggest clinical and radiologic correlation. Case discussed with Dr. Heller. Comments GASTROINTESTINAL STROMAL TUMOR (GIST): Resection Based on AJCC 8th Edition Procedure _X_ Resection Specify type: small bowel resection Tumor Site Specify (if known): Small bowel (jejunum) Tumor Size Greatest dimension (centimeters): 1 cm Tumor Focality _X_ Multifocal Specify number of tumors: 2 Specify size of tumors: 1 cm, each Histologic Type _X_ Gastrointestinal stromal tumor, spindle cell type Mitotic Rate Specify: 3/5 mm2 Necrosis _X_ Not identified Histologic Grade _X_ G1: Low grade; mitotic rate =5/5 mm2 Risk Assessment _X_ None Margins _X__ Uninvolved by GIST Distance of tumor from closest margin (millimeters or centimeters): >1.5 cm Regional Lymph Nodes _X__ No lymph nodes submitted or found Pathologic Stage Classification (pTNM, AJCC 8th Edition) TNM Descriptors _X__ m (multiple) Primary Tumor (pT) :. _X__ pT1: Tumor 2 cm or less Additional Pathologic Findings Specify: Neurofibroma Immunohistochemical Studies _X__ KIT (CD117) _X__ Positive _X__ DOG1 (ANO1) _X__ Positive Treatment Effect _X__ No known presurgical therapy Comment: AJCC (TNM) staging is not applicable in familial GIST syndrome. Electronically Signed Courtney García M.D. Gross Description A. Received in formalin labeled "proximal jejunal implant," is a 1.0 x 0.8 x 0.5 cm carver nodule. Sectioning reveals homogeneous carver, smooth parenchyma. The nodule is bisected and entirely submitted in one cassette. B. Received in formalin labeled "portion of proximal small bowel," is a 17 cm in length portion of small bowel with 2 stapled mucosal margins and moderate attached fat. The serosa is grubbs-brown with a 1.0 cm in greatest dimension bulging serosal nodule at 1.5 cm from the closest mucosal margin. The mucosa is carver with normal folds. No mucosal masses are identified. Sectioning of the attached serosal nodule displays homogeneous pale carver parenchyma. No additional lesions are identified. Separately received within the same container is a 3.0 cm in greatest dimension portion of bowel with a staple line, consistent with a donut. Photolettering Machine Operator sections are submitted in 8 cassettes as follows: 1-stapled mucosal margin closest to serosal nodule; 2-additional stapled mucosal margin; 3-5-small bowel with serosal nodule; 6-uninvolved account services representative small bowel; 7-attached fat with possible small lymph node; 8-donut. 06/04/2018 [facility]06/04/2018
--- NOTE | 2018-06-07 16:24 | PN ---
Teaching Attending Note Name of Resident: Lelia Davalos ATTENDING PHYSICIAN STATEMENT I saw and evaluated the patient. I reviewed the resident's note and discussed the case with the resident. I agree with the resident's findings and plan as documented. SUBJECTIVE: NG tube still draining around 700cc overnight, c/o having mild abdominal pain . OBJECTIVE: Vital Signs Temperature 97.9 F 06/07/18 14:19 Pulse Rate 78 06/07/18 14:19 Respiratory Rate 18 06/07/18 09:00 Blood Pressure 147/97 06/07/18 14:19 O2 Sat by Pulse Oximetry (%) 94 L 06/07/18 09:00 GENERAL: The patient is awake, alert, and fully oriented, in NAD. NG tube in place draining bile. EYES: PERRLA: EOMI; no scleral icterus. NECK: no JVD: no lymphadenopathy LUNGS: CTA B/L; no rales, rhonchi or wheezing HEART: RRR, S1S2 positive, without murmur, rub or gallop. ABDOMEN: Soft, midline incision with rhiannon no erythema or drainage rhiannon intact EXTREMITIES: 2+ pulses, warm, well-perfused, no edema. PSYCH: Normal mood, normal affect. SKIN: Warm, dry, normal turgor, no rashes or lesions noted CBCD WBC 5.7 K/mm3 (4.0-10.0) 06/07/18 06:50 RBC 4.04 M/mm3 (4.00-5.60) 06/07/18 06:50 Hgb 10.1 GM/dL (11.7-16.9) L 06/07/18 06:50 Hct 31.5 % (35.4-49) L 06/07/18 06:50 MCV 78.1 fl (80-96) L 06/07/18 06:50 MCHC 32.1 g/dl (32.0-35.9) 06/07/18 06:50 RDW 16.3 % (11.9-15.9) H 06/07/18 06:50 Plt Count 252 K/MM3 (134-434) 06/07/18 06:50 MPV 8.3 fl (7.5-11.1) 06/07/18 06:50 CMP Sodium 139 mmol/L (136-145) 06/07/18 06:50 Potassium 3.7 mmol/L (3.5-5.1) 06/07/18 06:50 Chloride 108 mmol/L (98-107) H 06/07/18 06:50 Carbon Dioxide 25 mmol/L (21-32) 06/07/18 06:50 Anion Gap 6 MMOL/L (8-16) L 06/07/18 06:50 BUN 9 mg/dL (7-18) 06/07/18 06:50 Creatinine 0.5 mg/dL (0.55-1.3) L 06/07/18 06:50 Creat Clearance w eGFR 166.88 (>60) 06/07/18 06:50 Random Glucose 86 mg/dL (74-106) 06/07/18 06:50 Calcium 8.6 mg/dL (8.5-10.1) 06/07/18 06:50 Total Bilirubin 0.6 mg/dL (0.2-1) 06/06/18 07:00 AST 33 U/L (15-37) 06/06/18 07:00 ALT 40 U/L (13-61) 06/06/18 07:00 Alkaline Phosphatase 70 U/L (45-117) 06/06/18 07:00 Total Protein 6.0 g/dl (6.4-8.2) L 06/06/18 07:00 Albumin 2.9 g/dl (3.4-5.0) L 06/06/18 07:00 Current Medications Generic Name Dose Route Start Last Admin Trade Name Audieq PRN Reason Stop Dose Admin Acetaminophen 1,000 mg 06/04/18 18:00 06/07/18 12:01 Ofirmev Injection - IVPB 1,000 mg Q6H KARINA Administration Enoxaparin Sodium 40 mg 06/03/18 10:00 06/07/18 09:38 Lovenox - SQ 40 mg DAILY KARINA Administration Potassium Chloride/Dextrose/Sod Cl 20 meq in 1,000 mls @ 125 mls/hr 06/03/18 14:07 06/07/18 03:02 D5-1/2ns+20 Meq Kcl - IV 125 mls/hr ASDIR [facility]ARINA Administration Pantoprazole Sodium 40 mg 06/03/18 10:00 06/07/18 09:38 Protonix Iv IVPUSH 40 mg DAILY KARINA Administration Prochlorperazine Edisylate 10 mg 06/02/18 16:11 Compazine Injection - IVPB Q4H PRN NAUSEA AND/OR VOMITING Home Medications Medication Instructions Recorded Hydrochlorothiazide 20 mg PO DAILY 06/02/18 Pantoprazole Sodium [Protonix] 40 mg PO DAILY 06/03/18 ASSESSMENT AND PLAN: Patient is a 67yo man with no PMHx HTN, GERD, Ron's esophagus and a 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 He was found to have acute high grade SBO . # POD #5 s/p partial small bowel resection due to High grade SBO: unclear etiology. continue NPO since still NG-tube is draining around 700cc . continue NPO. NGT to suction, pain control , path report pending. continue incentive spirometer, Surgeon on the case. #Hx of HTN: hold HCTZ. On IVF conitnue #Hx of GERD: continue PPI #L5-s1 anterolisthesis: f/u with Dr. Gill as out pt. DVt px: SCds , lovenox
--- NOTE | 2018-06-07 19:41 | PN ---
Progress Note, Physician History of Present Illness: Pt s/p laparotomy with small bowel resection for obstruction with soft transition point but no clear etiology identified, also biopsy of small bowel nodules/implant, of which multiple were identified on proximal small bowel oconnor - pathology pending, peritoneal washings for cytology, neg for malignant cells. He is seen and examined in room. He reports feeling ok, pain controlled with standing Tylenol, ambulating, up to chair frequently. Passed flatus but no BM yet. NG with a little less drainage daily. Distension better this pm than earlier today. Feeling better overall. - Current Medication List Current Medications: Active Medications Acetaminophen (Ofirmev Injection -) 1,000 mg IVPB Q6H [facility] Last Admin: 06/07/18 18:24 Dose: 1,000 mg Enoxaparin Sodium (Lovenox -) 40 mg SQ DAILY [facility] Last Admin: 06/07/18 09:38 Dose: 40 mg Potassium Chloride/Dextrose/Sod Cl (D5-1/2ns+20 Meq Kcl -) 20 meq in 1,000 mls @ 125 mls/hr IV ASDIR [facility] Last Admin: 06/07/18 03:02 Dose: 125 mls/hr Pantoprazole Sodium (Protonix Iv) 40 mg IVPUSH DAILY [facility] Last Admin: 06/07/18 09:38 Dose: 40 mg - Objective Vital Signs: Vital Signs Temperature 97.9 F 06/07/18 14:19 Pulse Rate 78 06/07/18 14:19 Respiratory Rate 18 06/07/18 09:00 Blood Pressure 147/97 06/07/18 14:19 O2 Sat by Pulse Oximetry (%) 94 L 06/07/18 09:00 Constitutional: Yes: Well Nourished, No Distress, Calm Eyes: Yes: Conjunctiva Clear, EOM Intact HENT: Yes: Atraumatic, Normocephalic, Other (NG in place) Gastrointestinal: Yes: Soft, Distention (mild, less than earlier, minimal to no tympany), Hypoactive Bowel Sounds, Tenderness (mainly incisional) Extremities: No: Cool, Cyanosis Integumentary: Yes: Incision (midline with rhiannon). No: Jaundice, Rash Wound/Incision: Yes: Clean/Dry, Well Approximated, Rhiannon Intact, Open to air. No: Draining, Reddened Neurological: Yes: Alert, Oriented. 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 - sent down to pathology continue NPO/NGT/IVF - less NG output, feeling a bit better overall will clamp NG overnight and pull tomorrow if no nausea or increase in distention GI/DVT prophylaxis little flatus, but no bowel movement yet - maybe small smear IV meds prn for HTN if needed IV tylenol scheduled for pain with morphine available as breakthrough prn (not using) encourage OOB to chair and ambulation as able, use of IS routinely await pathology results Code(s): K56.609 - UNSP INTESTNL OBST, UNSP TO PARTIAL VERSUS COMPLETE OBST (2) Hypertension Assessment/Plan: medicine to manage, IV meds prn Code(s): I10 - ESSENTIAL (PRIMARY) HYPERTENSION Qualifiers: Hypertension type: essential hypertension Qualified Code(s): I10 - Essential (primary) hypertension (3) GERD (gastroesophageal reflux disease) Assessment/Plan: continue PPI Code(s): K21.9 - GASTRO-ESOPHAGEAL REFLUX DISEASE WITHOUT ESOPHAGITIS Qualifiers: Esophagitis presence: without esophagitis Qualified Code(s): K21.9 - Gastro -esophageal reflux disease without esophagitis
[2018-06-08] MEDS: ACETAMINOPHEN 1000 MG/100 ML VIAL (NON FORMULARY) IVPB SCH ×3 (00:33→13:22)
[2018-06-08] MEDS: D5-1/2NS+20 MEQ KCL - 20 MEQ/1,000 ML INFUS.BAG IV SCH ×2 (06:16→16:09)
--- NOTE | 2018-06-08 08:21 | PN ---
Physical Exam: SUBJECTIVE: Patient seen and examined at bedtime; no acute events overnight; pateint is feeling better- was disconnected from the NGT last night; had a bowel movement yesterday; denies any CP/SOB/N/V fevers or chills OBJECTIVE: Vital Signs Period Temp Pulse Resp BP Sys/Sanchez Pulse Ox Last 24 Hr 97.9 F-99.1 F 75-83 18-20 140-151/66-97 94-96 GENERAL: The patient is awake, alert, and fully oriented, in no acute distress. EYES: PEERLA; EOMI; no scleral icterus . NECK:no JVD; no lymphadenopathy. LUNGS:CTA B/L; no rales, rhonchi or wheezing. HEART: Regular rate and rhythm, S1, S2 without murmur, rub or gallop. ABDOMEN: Soft, nontender midling incisision with rhiannon intact; bruising B/L; normoactive BS EXTREMITIES: 2+ pulses, warm, well-perfused, no edema. PSYCH: Normal mood, normal affect. SKIN: Warm, dry, normal turgor, no rashes or lesions noted Active Medications Generic Name Dose Route Start Last Admin Trade Name Freq PRN Reason Stop Dose Admin Acetaminophen 1,000 mg 06/04/18 18:00 06/08/18 06:05 Ofirmev Injection - IVPB 1,000 mg Q6H KARINA Administration Enoxaparin Sodium 40 mg 06/03/18 10:00 06/07/18 09:38 Lovenox - SQ 40 mg DAILY KARINA Administration Potassium Chloride/Dextrose/Sod Cl 20 meq in 1,000 mls @ 125 mls/hr 06/03/18 14:07 06/08/18 06:16 D5-1/2ns+20 Meq Kcl - IV 125 mls/hr ASDIR KARINA Administration Pantoprazole Sodium 40 mg 06/03/18 10:00 06/07/18 09:38 Protonix Iv IVPUSH 40 mg DAILY KARINA Administration ASSESSMENT/PLAN: 67 y/o man with h/o HTN, GERD, Ron's esophagus and a recent R thigh mass resection ( reportedly benign) , who presented with Abd pain . He was found to have acute high grade SBO . #High grade SBO: unclear etiology. s/p partial small bowel resection POD #7 - patient had bowel movement yesterday and is passing flatus -was disconnected from NGT last night; possible removal of NGT today as per Dr. mauro - 1gram IV tylneol q6h with morphine 2q4 PRN for breakthrough - use incentive spirometer - # HTN: -holding HCTZ for now -will monitor hemodynamics and hydrate #GERD c/w PPI F/E/N monitor electrolytes NPO DVT PPX: lovenox Problem List - Problems (1) GERD (gastroesophageal reflux disease) Code(s): K21.9 - GASTRO-ESOPHAGEAL REFLUX DISEASE WITHOUT ESOPHAGITIS Qualifiers: Esophagitis presence: without esophagitis Qualified Code(s): K21.9 - Gastro -esophageal reflux disease without esophagitis (2) Hypertension Code(s): I10 - ESSENTIAL (PRIMARY) HYPERTENSION Qualifiers: Hypertension type: essential hypertension Qualified Code(s): I10 - Essential (primary) hypertension (3) Small bowel obstruction Code(s): K56.609 - UNSP INTESTNL OBST, UNSP TO PARTIAL VERSUS COMPLETE OBST Visit type - Emergency Visit Emergency Visit: Yes ED Registration Date: 06/02/18 Care time: The patient presented to the Emergency Department on the above date and was hospitalized for further evaluation of their emergent condition. - New Patient This patient is new to me today: No - Critical Care Critical Care patient: No
[2018-06-08 08:33] LABS: HEMATOCRIT 35.3 % (35.4-49); HEMOGLOBIN 11.3 GM/dL (11.7-16.9); MEAN CELL VOLUME 78.3 fl (80-96); MEAN PLT VOLUME 8.2 fl (7.5-11.1); PLATELET COUNT 325 K/MM3 (134-434); RBC 4.51 M/mm3 (4.00-5.60); RDW 16.4 % (11.9-15.9); WHITE BLOOD COUNT 7.8 K/mm3 (4.0-10.0)
[2018-06-08 08:34] LABS: ANION GAP 8 MMOL/L (8-16); BLOOD UREA NITROGEN 7 mg/dL (7-18); CALCIUM 8.9 mg/dL (8.5-10.1); CHLORIDE 106 mmol/L (98-107); CO2 24 mmol/L (21-32); CREATININE 0.6 mg/dL (0.55-1.3); GLUCOSE,RANDOM 106 mg/dL (74-106); MAGNESIUM 2.2 mg/dL (1.8-2.4); PHOSPHOROUS 3.5 mg/dL (2.5-4.9); POTASSIUM 3.7 mmol/L (3.5-5.1); SODIUM 137 mmol/L (136-145)
[2018-06-08] MEDS: PANTOPRAZOLE SODIUM 40 MG VIAL IVPUSH SCH (09:36)
[2018-06-08] MEDS: ENOXAPARIN NA (PORCINE) 40 MG/0.4 ML DISP.SYRIN SQ SCH (09:39)
[2018-06-08] MEDS ORDERED: ACETAMINOPHEN 325 MG TABLET (FP) PO PRN (15:09)
--- NOTE | 2018-06-08 15:20 | PN ---
Progress Note, Physician History of Present Illness: Pt s/p laparotomy with small bowel resection for obstruction with soft transition point but no clear etiology identified, also biopsy of small bowel nodules/implant, of which multiple were identified on proximal small bowel oconnor - pathology pending, peritoneal washings for cytology, neg for malignant cells. He is seen and examined in room, moved from chair to bed. He reports feeling ok , pain controlled with standing Tylenol, ambulating, up to chair frequently. Passed flatus and BMs. NG clamped since last night with no nausea or distention. Voiding ok. - Current Medication List Current Medications: Active Medications Acetaminophen (Tylenol -) 650 mg PO Q6H PRN PRN Reason: PAIN LEVEL 6-10 Enoxaparin Sodium (Lovenox -) 40 mg SQ DAILY [facility] Last Admin: 06/08/18 09:39 Dose: 40 mg Potassium Chloride/Dextrose/Sod Cl (D5-1/2ns+20 Meq Kcl -) 20 meq in 1,000 mls @ 75 mls/hr IV ASDIR KARINA Pantoprazole Sodium (Protonix -) 40 mg PO DAILY [facility] - Objective Vital Signs: Vital Signs Temperature 98.6 F 06/08/18 15:17 Pulse Rate 78 06/08/18 15:17 Respiratory Rate 18 06/08/18 09:00 Blood Pressure 173/84 H 06/08/18 15:17 O2 Sat by Pulse Oximetry (%) 95 06/08/18 09:00 Constitutional: Yes: Well Nourished, No Distress, Calm Eyes: Yes: Conjunctiva Clear, EOM Intact HENT: Yes: Atraumatic, Normocephalic, Other (NG removed at bedside) Gastrointestinal: Yes: Normal Bowel Sounds, Soft. No: Distention, Tenderness ( minimal incisional only) Extremities: No: Cool, Cyanosis Integumentary: Yes: Bruising (ecchymosis around midline incision, varying colors - resolving), Incision (midline w/rhiannon). No: Erythema, Jaundice, Rash Wound/Incision: Yes: Clean/Dry, Well Approximated, [place] Intact, Open to air Neurological: Yes: Alert, Oriented. 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 Davalos Code(s): K56.609 - UNSP INTESTNL OBST, UNSP TO PARTIAL VERSUS COMPLETE OBST (2) Hypertension Assessment/Plan: medicine to confirm home meds and doses ok to resume lisinopril would hold HCTZ for now Code(s): I10 - ESSENTIAL (PRIMARY) HYPERTENSION Qualifiers: Hypertension type: essential hypertension Qualified Code(s): I10 - Essential (primary) hypertension (3) GERD (gastroesophageal reflux disease) Assessment/Plan: continue PPI Code(s): K21.9 - GASTRO-ESOPHAGEAL REFLUX DISEASE WITHOUT ESOPHAGITIS Qualifiers: Esophagitis presence: without esophagitis Qualified Code(s): K21.9 - Gastro -esophageal reflux disease without esophagitis
[2018-06-08] MEDS ORDERED: PATIENT'S OWN MEDICATION (NON-FORMULARY) (Enalapril Maleate [Vasotec] 20 MG) PO SCH (16:30)
[2018-06-08] MEDS ORDERED: ENALAPRIL MALEATE 10 MG PO SCH (16:30)
--- NOTE | 2018-06-08 16:58 | PN ---
Teaching Attending Note Name of Resident: Lelia Davalos ATTENDING PHYSICIAN STATEMENT I saw and evaluated the patient. I reviewed the resident's note and discussed the case with the resident. I agree with the resident's findings and plan as documented. SUBJECTIVE: Patient is feeling better with no acute distress. OBJECTIVE: Vital Signs Temperature 98.6 F 06/08/18 15:17 Pulse Rate 78 06/08/18 15:17 Respiratory Rate 18 06/08/18 09:00 Blood Pressure 173/84 H 06/08/18 15:17 O2 Sat by Pulse Oximetry (%) 95 06/08/18 09:00 GENERAL: The patient is awake, alert, and fully oriented, in NAD. NG tube is removed. EYES: PERRLA: EOMI; no scleral icterus. NECK: no JVD: no lymphadenopathy LUNGS: CTA B/L; no rales, rhonchi or wheezing HEART: RRR, S1S2 positive, without murmur, rub or gallop. ABDOMEN: Soft, midline incision with rhiannon no erythema or drainage rhiannon intact EXTREMITIES: 2+ pulses, warm, well-perfused, no edema. PSYCH: Normal mood, normal affect. SKIN: Warm, dry, normal turgor, no rashes or lesions noted CBCD WBC 7.8 K/mm3 (4.0-10.0) 06/08/18 07:30 RBC 4.51 M/mm3 (4.00-5.60) 06/08/18 07:30 Hgb 11.3 GM/dL (11.7-16.9) L 06/08/18 07:30 Hct 35.3 % (35.4-49) L 06/08/18 07:30 MCV 78.3 fl (80-96) L 06/08/18 07:30 MCHC 32.0 g/dl (32.0-35.9) 06/08/18 07:30 RDW 16.4 % (11.9-15.9) H 06/08/18 07:30 Plt Count 325 K/MM3 (134-434) D 06/08/18 07:30 MPV 8.2 fl (7.5-11.1) 06/08/18 07:30 CMP Sodium 137 mmol/L (136-145) 06/08/18 07:30 Potassium 3.7 mmol/L (3.5-5.1) 06/08/18 07:30 Chloride 106 mmol/L (98-107) 06/08/18 07:30 Carbon Dioxide 24 mmol/L (21-32) 06/08/18 07:30 Anion Gap 8 MMOL/L (8-16) 06/08/18 07:30 BUN 7 mg/dL (7-18) 06/08/18 07:30 Creatinine 0.6 mg/dL (0.55-1.3) 06/08/18 07:30 Creat Clearance w eGFR 135.22 (>60) 06/08/18 07:30 Random Glucose 106 mg/dL (74-106) 06/08/18 07:30 Calcium 8.9 mg/dL (8.5-10.1) 06/08/18 07:30 Total Bilirubin 0.6 mg/dL (0.2-1) 06/06/18 07:00 AST 33 U/L (15-37) 06/06/18 07:00 ALT 40 U/L (13-61) 06/06/18 07:00 Alkaline Phosphatase 70 U/L (45-117) 06/06/18 07:00 Total Protein 6.0 g/dl (6.4-8.2) L 06/06/18 07:00 Albumin 2.9 g/dl (3.4-5.0) L 06/06/18 07:00 Current Medications Generic Name Dose Route Start Last Admin Trade Name Freq PRN Reason Stop Dose Admin Acetaminophen 650 mg 06/08/18 15:09 Tylenol - PO Q6H PRN PAIN LEVEL 6-10 Enalapril Maleate 10 mg 06/09/18 10:00 Vasotec - PO DAILY [facility] Enoxaparin Sodium 40 mg 06/03/18 10:00 06/08/18 09:39 Lovenox - SQ 40 mg DAILY [facility] Administration Potassium Chloride/Dextrose/Sod Cl 20 meq in 1,000 mls @ 75 mls/hr 06/08/18 15 :10 D5-1/2ns+20 Meq Kcl - IV ASDIR KARINA Pantoprazole Sodium 40 mg 06/09/18 10:00 Protonix - PO DAILY [facility] Home Medications Medication Instructions Recorded Hydrochlorothiazide 20 mg PO DAILY 06/02/18 Pantoprazole Sodium [Protonix] 40 mg PO DAILY 06/03/18 Enalapril Maleate [Vasotec] 20 mg PO DAILY 06/08/18 ASSESSMENT AND PLAN: Patient is a 67yo man with no PMHx HTN, GERD, Ron's esophagus and a 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 He was found to have acute high grade SBO . # POD #6 s/p partial small bowel resection due to High grade SBO: unclear etiology. NG-tube is removed . pain control , path report pending. cytology is pending , continue incentive spirometer, Surgeon Dr. Heller on the case. On clears now. #Hx of HTN: hold HCTZ. On IVF conitnue #Hx of GERD: continue PPI #L5-s1 anterolisthesis: f/u with Dr. Gill as out pt. DVt px: SCds , lovenox
[2018-06-09] MEDS: D5-1/2NS+20 MEQ KCL - 20 MEQ/1,000 ML INFUS.BAG IV SCH (02:24)
[2018-06-09 07:09] LABS: HEMATOCRIT 34.2 % (35.4-49); HEMOGLOBIN 10.9 GM/dL (11.7-16.9); MCH 25.1 pg (25.7-33.7); MCHC 31.9 g/dl (32.0-35.9); MEAN CELL VOLUME 78.8 fl (80-96); MEAN PLT VOLUME 8.1 fl (7.5-11.1); PLATELET COUNT 303 K/MM3 (134-434); RBC 4.34 M/mm3 (4.00-5.60); RDW 16.2 % (11.9-15.9); WHITE BLOOD COUNT 6.5 K/mm3 (4.0-10.0)
[2018-06-09 07:25] LABS: ANION GAP 6 MMOL/L (8-16); BLOOD UREA NITROGEN 5 mg/dL (7-18); CALCIUM 8.7 mg/dL (8.5-10.1); CHLORIDE 106 mmol/L (98-107); CO2 26 mmol/L (21-32); CREATININE 0.7 mg/dL (0.55-1.3); GLUCOSE,RANDOM 93 mg/dL (74-106); MAGNESIUM 2.1 mg/dL (1.8-2.4); PHOSPHOROUS 3.8 mg/dL (2.5-4.9); POTASSIUM 4.1 mmol/L (3.5-5.1); SODIUM 138 mmol/L (136-145)
[2018-06-09] MEDS: ENOXAPARIN NA (PORCINE) 40 MG/0.4 ML DISP.SYRIN SQ SCH (09:20)
[2018-06-09] MEDS: ENALAPRIL MALEATE 10 MG TABLET (FP) PO SCH (09:20)
[2018-06-09] MEDS: PANTOPRAZOLE 40 MG TABLET (FP) PO SCH (09:20)
--- NOTE | 2018-06-09 11:07 | PN ---
Progress Note (short form) - Note Progress Note: Patient is feeling better with no acute distress. tolerating diet. Vital Signs Temperature 98.0 F 06/09/18 09:00 Pulse Rate 78 06/09/18 09:00 Respiratory Rate 20 06/09/18 09:00 Blood Pressure 152/98 06/09/18 09:00 O2 Sat by Pulse Oximetry (%) 96 06/09/18 09:00 Initial Vital Signs Temp Pulse Resp BP Pulse Ox 97.9 F 73 20 159/77 95 06/02/18 00:53 06/02/18 00:53 06/02/18 00:53 06/02/18 00:53 06/02/18 00:53 GENERAL: The patient is awake, alert, and fully oriented, in NAD. NG tube is removed. EYES: PERRLA: EOMI; no scleral icterus. NECK: no JVD: no lymphadenopathy LUNGS: CTA B/L; no rales, rhonchi or wheezing HEART: RRR, S1S2 positive, without murmur, rub or gallop. ABDOMEN: Soft, midline incision with rhiannon no erythema or drainage rhiannon intact EXTREMITIES: 2+ pulses, warm, well-perfused, no edema. PSYCH: Normal mood, normal affect. SKIN: Warm, dry, normal turgor, no rashes or lesions noted CBCD WBC 6.5 K/mm3 (4.0-10.0) 06/09/18 06:00 RBC 4.34 M/mm3 (4.00-5.60) 06/09/18 06:00 Hgb 10.9 GM/dL (11.7-16.9) L 06/09/18 06:00 Hct 34.2 % (35.4-49) L 06/09/18 06:00 MCV 78.8 fl (80-96) L 06/09/18 06:00 MCHC 31.9 g/dl (32.0-35.9) L 06/09/18 06:00 RDW 16.2 % (11.9-15.9) H 06/09/18 06:00 Plt Count 303 K/MM3 (134-434) 06/09/18 06:00 MPV 8.1 fl (7.5-11.1) 06/09/18 06:00 CMP Sodium 138 mmol/L (136-145) 06/09/18 06:00 Potassium 4.1 mmol/L (3.5-5.1) 06/09/18 06:00 Chloride 106 mmol/L (98-107) 06/09/18 06:00 Carbon Dioxide 26 mmol/L (21-32) 06/09/18 06:00 Anion Gap 6 MMOL/L (8-16) L 06/09/18 06:00 BUN 5 mg/dL (7-18) L 06/09/18 06:00 Creatinine 0.7 mg/dL (0.55-1.3) 06/09/18 06:00 Creat Clearance w eGFR 113.18 (>60) 06/09/18 06:00 Random Glucose 93 mg/dL (74-106) 06/09/18 06:00 Calcium 8.7 mg/dL (8.5-10.1) 06/09/18 06:00 Total Bilirubin 0.6 mg/dL (0.2-1) 06/06/18 07:00 AST 33 U/L (15-37) 06/06/18 07:00 ALT 40 U/L (13-61) 06/06/18 07:00 Alkaline Phosphatase 70 U/L (45-117) 06/06/18 07:00 Total Protein 6.0 g/dl (6.4-8.2) L 06/06/18 07:00 Albumin 2.9 g/dl (3.4-5.0) L 06/06/18 07:00 Patient is a 67yo man with no PMHx HTN, GERD, Ron's esophagus and a 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 He was found to have acute high grade SBO . # POD #5 s/p partial small bowel resection due to High grade SBO: unclear etiology. discontinued NG tube, tolerating diet so far, pain control , path report Pathology report :finalized. 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 No lymph nodes in specimen. Case will be discussed in tumor board in June. Patient will be referred to Dr. Barcenas as an outpatient. Surgeon on the case. #Hx of HTN: discontinue HCTZ. #Hx of GERD: continue PPI #L5-s1 anterolisthesis: f/u with Dr. Gill as out pt. DVt px: SCds , lovenox Visit type - Emergency Visit Emergency Visit: Yes ED Registration Date: 06/02/18 Care time: The patient presented to the Emergency Department on the above date and was hospitalized for further evaluation of their emergent condition. - New Patient This patient is new to me today: No - Critical Care Critical Care patient: No - Discharge Referral Referred to [facility] No
--- NOTE | 2018-06-09 14:21 | PN ---
Progress Note, Physician History of Present Illness: Pt s/p laparotomy with small bowel resection for obstruction with soft transition point but no clear etiology identified, also biopsy of small bowel nodules/implant, of which multiple were identified on proximal small bowel oconnor - pathology pending, peritoneal washings for cytology, neg for malignant cells. He is seen and examined in bed. He reports well, not really using Tylenol prn, ambulating, up to chair. Tolerating clears with no nausea, + bowel function. Hungry for food. - Current Medication List Current Medications: Active Medications Acetaminophen (Tylenol -) 650 mg PO Q6H PRN PRN Reason: PAIN LEVEL 6-10 Enalapril Maleate (Vasotec -) 10 mg PO DAILY [facility] Last Admin: 06/09/18 09:20 Dose: 10 mg Enoxaparin Sodium (Lovenox -) 40 mg SQ DAILY [facility] Last Admin: 06/09/18 09:20 Dose: 40 mg Pantoprazole Sodium (Protonix -) 40 mg PO DAILY [facility] Last Admin: 06/09/18 09:20 Dose: 40 mg - Objective Vital Signs: Vital Signs Temperature 98.4 F 06/09/18 14:09 Pulse Rate 76 06/09/18 14:09 Respiratory Rate 20 06/09/18 09:00 Blood Pressure 148/84 06/09/18 14:09 O2 Sat by Pulse Oximetry (%) 96 06/09/18 09:00 Constitutional: Yes: Well Nourished, No Distress, Calm Eyes: Yes: Conjunctiva Clear, EOM Intact HENT: Yes: Atraumatic, Normocephalic Gastrointestinal: Yes: Normal Bowel Sounds, Soft. No: Distention, Tenderness ( minimal to no incisional) Extremities: No: Cool, Cyanosis Integumentary: Yes: Bruising (resolving, around midline incision), Incision ( midline w/rhiannon). 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 - sent down to pathology tolerating clears, advance to regular now stop IVF GI/DVT prophylaxis moving well, continue OOB/ambulation/IS f/u pathology if tolerating diet well, can likely d/c home tomorrow with lifting restrictions f/u with surgery next week for staple removal instructions in d/c plan Code(s): K56.609 - UNSP INTESTNL OBST, UNSP TO PARTIAL VERSUS COMPLETE OBST (2) Hypertension Assessment/Plan: ok for home meds Code(s): I10 - ESSENTIAL (PRIMARY) HYPERTENSION Qualifiers: Hypertension type: essential hypertension Qualified Code(s): I10 - Essential (primary) hypertension (3) GERD (gastroesophageal reflux disease) Assessment/Plan: continue PPI Code(s): K21.9 - GASTRO-ESOPHAGEAL REFLUX DISEASE WITHOUT ESOPHAGITIS Qualifiers: Esophagitis presence: without esophagitis Qualified Code(s): K21.9 - Gastro -esophageal reflux disease without esophagitis
[2018-06-10] MEDS ORDERED: PT OWN MED DRAWER 7, Y5N ONE (09:03)
[2018-06-10] MEDS: PANTOPRAZOLE 40 MG TABLET (FP) PO SCH (09:17)
[2018-06-10] MEDS: ENOXAPARIN NA (PORCINE) 40 MG/0.4 ML DISP.SYRIN SQ SCH (09:17)
[2018-06-10] MEDS: ENALAPRIL MALEATE 10 MG TABLET (FP) PO SCH (09:17)
[2018-06-10 10:06] VITALS: BP 157/89; PULSE 96; TEMP 97.6
--- NOTE | 2018-06-10 14:07 | PN ---
Teaching Attending Note Name of Resident: Earl Mojica ATTENDING PHYSICIAN STATEMENT I saw and evaluated the patient. I reviewed the resident's note and discussed the case with the resident. I agree with the resident's findings and plan as documented. SUBJECTIVE: Patient has no new complain tolerated diet well. OBJECTIVE: Vital Signs Temperature 97.6 F 06/10/18 09:00 Pulse Rate 96 H 06/10/18 09:00 Respiratory Rate 20 06/10/18 09:00 Blood Pressure 157/89 06/10/18 09:00 O2 Sat by Pulse Oximetry (%) 96 06/10/18 09:00 GENERAL: The patient is awake, alert, and fully oriented, in NAD. s/p NG tube EYES: PERRLA: EOMI; no scleral icterus. NECK: no JVD: no lymphadenopathy LUNGS: CTA B/L; no rales, rhonchi or wheezing HEART: RRR, S1S2 positive, without murmur, rub or gallop. ABDOMEN: Soft, midline incision with rhiannon no erythema or drainage rhiannon intact EXTREMITIES: 2+ pulses, warm, well-perfused, no edema. PSYCH: Normal mood, normal affect. SKIN: Warm, dry, normal turgor, no rashes or lesions noted CBCD WBC 6.5 K/mm3 (4.0-10.0) 06/09/18 06:00 RBC 4.34 M/mm3 (4.00-5.60) 06/09/18 06:00 Hgb 10.9 GM/dL (11.7-16.9) L 06/09/18 06:00 Hct 34.2 % (35.4-49) L 06/09/18 06:00 MCV 78.8 fl (80-96) L 06/09/18 06:00 MCHC 31.9 g/dl (32.0-35.9) L 06/09/18 06:00 RDW 16.2 % (11.9-15.9) H 06/09/18 06:00 Plt Count 303 K/MM3 (134-434) 06/09/18 06:00 MPV 8.1 fl (7.5-11.1) 06/09/18 06:00 CMP Sodium 138 mmol/L (136-145) 06/09/18 06:00 Potassium 4.1 mmol/L (3.5-5.1) 06/09/18 06:00 Chloride 106 mmol/L (98-107) 06/09/18 06:00 Carbon Dioxide 26 mmol/L (21-32) 06/09/18 06:00 Anion Gap 6 MMOL/L (8-16) L 06/09/18 06:00 BUN 5 mg/dL (7-18) L 06/09/18 06:00 Creatinine 0.7 mg/dL (0.55-1.3) 06/09/18 06:00 Creat Clearance w eGFR 113.18 (>60) 06/09/18 06:00 Random Glucose 93 mg/dL (74-106) 06/09/18 06:00 Calcium 8.7 mg/dL (8.5-10.1) 06/09/18 06:00 Total Bilirubin 0.6 mg/dL (0.2-1) 06/06/18 07:00 AST 33 U/L (15-37) 06/06/18 07:00 ALT 40 U/L (13-61) 06/06/18 07:00 Alkaline Phosphatase 70 U/L (45-117) 06/06/18 07:00 Total Protein 6.0 g/dl (6.4-8.2) L 06/06/18 07:00 Albumin 2.9 g/dl (3.4-5.0) L 06/06/18 07:00 Current Medications Generic Name Dose Route Start Last Admin Trade Name Freq PRN Reason Stop Dose Admin Acetaminophen 650 mg 06/08/18 15:09 Tylenol - PO Q6H PRN PAIN LEVEL 6-10 Enalapril Maleate 10 mg 06/09/18 10:00 06/10/18 09:17 Vasotec - PO 10 mg DAILY KARINA Administration Enoxaparin Sodium 40 mg 06/03/18 10:00 06/10/18 09:17 Lovenox - SQ 40 mg DAILY [facility]INA Administration Pantoprazole Sodium 40 mg 06/09/18 10:00 06/10/18 09:17 Protonix - PO 40 mg DAILY [facility]INA Administration Home Medications Medication Instructions Recorded Hydrochlorothiazide 20 mg PO DAILY 06/02/18 Pantoprazole Sodium [Protonix] 40 mg PO DAILY 06/03/18 Enalapril Maleate [Vasotec] 20 mg PO DAILY 06/08/18 ASSESSMENT AND PLAN: Patient is a 67yo man with no PMHx HTN, GERD, Ron's esophagus and a 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 He was found to have acute high grade SBO . # POD #8 s/p partial small bowel resection due to High grade SBO: s/p Bx ; Pathology report :finalized. Small bowel nodules consistent with low-grade GIST and at least one neurofibroma. No lymph nodes in specimen. As per Dr. Heller, case will be discussed in tumor board in June. follow with Dr. Barcenas as an outpatient. Surgeon on the case follow up with, instructions on the discharge summary as per . #Hx of HTN: discontinue HCTZ. continue Vasotec #Hx of GERD: continue PPI #L5-s1 anterolisthesis: f/u with Dr. Gill as out pt. discharge patient home with follow up visit with //Swapna.
--- NOTE | 2018-06-10 16:23 | DS ---
Physical Exam: SUBJECTIVE: Patient seen and examined at bedside. No overnight events. No new complaints. Pain well controlled. Passing flatus. Tolerating regular diet. Denies CP,SPAULDING,SOB, palpitations, nausea, vomiting, fever or chills. OBJECTIVE: Vital Signs Period Temp Pulse Resp BP Sys/Sanchez Pulse Ox Last 24 Hr 97.6 F-98.9 F 75-96 20-20 106-157/61-89 96-96 PHYSICAL EXAM GENERAL: The patient is awake, alert, and fully oriented, in no acute distress. EYES: PEERLA; EOMI; no scleral icterus . NECK:no JVD; no lymphadenopathy. LUNGS:CTA B/L; no rales, rhonchi or wheezing. HEART: Regular rate and rhythm, S1, S2 without murmur, rub or gallop. ABDOMEN: Soft, nontender midline incisision with franci clean, dry and intact; bruising B/L; normoactive BS EXTREMITIES: 2+ pulses, warm, well-perfused, no edema. PSYCH: Normal mood, normal affect. SKIN: Warm, dry, normal turgor, no rashes or lesions noted LABS Laboratory Last Values WBC 6.5 K/mm3 (4.0-10.0) 06/09/18 06:00 RBC 4.34 M/mm3 (4.00-5.60) 06/09/18 06:00 Hgb 10.9 GM/dL (11.7-16.9) L 06/09/18 06:00 Hct 34.2 % (35.4-49) L 06/09/18 06:00 MCV 78.8 fl (80-96) L 06/09/18 06:00 MCH 25.1 pg (25.7-33.7) L 06/09/18 06:00 MCHC 31.9 g/dl (32.0-35.9) L 06/09/18 06:00 RDW 16.2 % (11.9-15.9) H 06/09/18 06:00 Plt Count 303 K/MM3 (134-434) 06/09/18 06:00 MPV 8.1 fl (7.5-11.1) 06/09/18 06:00 Absolute Neuts (auto) 6.4 K/mm3 (1.5-8.0) 06/03/18 06:30 Total Counted 100 06/02/18 03:00 Neutrophils % 81.8 % (42.8-82.8) 06/03/18 06:30 Neutrophils % (Manual) 96.0 % (42.8-82.8) H 06/02/18 03:00 Lymphocytes % 5.9 % (8-40) L D 06/03/18 06:30 Lymphocytes % (Manual) 2.0 % (8-40) L 06/02/18 03:00 Monocytes % 11.3 % (3.8-10.2) H D 06/03/18 06:30 Monocytes % (Manual) 2 % (3.8-10.2) L 06/02/18 03:00 Eosinophils % 0.4 % (0-4.5) D 06/03/18 06:30 Basophils % 0.6 % (0-2.0) 06/03/18 06:30 Nucleated RBC % 0 % (0-0) 06/03/18 06:30 Platelet Estimate Adequate 06/02/18 03:00 PT with INR 13.00 SEC (9.7-13.0) 06/02/18 03:00 INR 1.10 (0.83-1.09) H 06/02/18 03:00 PTT (Actin FS) 30.8 SECONDS (25.2-36.5) 06/02/18 03:00 D-Dimer 431 ng/ml (0-500) 06/02/18 03:00 Sodium 138 mmol/L (136-145) 06/09/18 06:00 Potassium 4.1 mmol/L (3.5-5.1) 06/09/18 06:00 Chloride 106 mmol/L (98-107) 06/09/18 06:00 Carbon Dioxide 26 mmol/L (21-32) 06/09/18 06:00 Anion Gap 6 MMOL/L (8-16) L 06/09/18 06:00 BUN 5 mg/dL (7-18) L 06/09/18 06:00 Creatinine 0.7 mg/dL (0.55-1.3) 06/09/18 06:00 Creat Clearance w eGFR 113.18 (>60) 06/09/18 06:00 Random Glucose 93 mg/dL (74-106) 06/09/18 06:00 Lactic Acid 1.1 mmol/L (0.4-2.0) 06/03/18 06:30 Calcium 8.7 mg/dL (8.5-10.1) 06/09/18 06:00 Phosphorus 3.8 mg/dL (2.5-4.9) 06/09/18 06:00 Magnesium 2.1 mg/dL (1.8-2.4) 06/09/18 06:00 Total Bilirubin 0.6 mg/dL (0.2-1) 06/06/18 07:00 AST 33 U/L (15-37) 06/06/18 07:00 ALT 40 U/L (13-61) 06/06/18 07:00 Alkaline Phosphatase 70 U/L (45-117) 06/06/18 07:00 Total Protein 6.0 g/dl (6.4-8.2) L 06/06/18 07:00 Albumin 2.9 g/dl (3.4-5.0) L 06/06/18 07:00 Lipase 117 U/L (73-393) 06/02/18 03:00 Carcinoembryonic Ag 0.7 ng/mL (0.0-4.7) 06/03/18 06:30 CA 19-9 Antigen 1 U/mL (0-35) 06/03/18 06:30 Urine Color Dk yellow 06/02/18 03:25 Urine Appearance Clear 06/02/18 03:25 Urine pH 5.0 (5.0-8.0) 06/02/18 03:25 Ur Specific [place] 1.029 (1.010-1.035) 06/02/18 03:25 Urine Protein Trace (NEGATIVE) 06/02/18 03:25 Urine Glucose (UA) Negative (NEGATIVE) 06/02/18 03:25 Urine Ketones Trace (NEGATIVE) H 06/02/18 03:25 Urine Blood Negative (NEGATIVE) 06/02/18 03:25 Urine Nitrite Negative (NEGATIVE) 06/02/18 03:25 Urine Bilirubin Negative (<2.0 mg/dL) 06/02/18 03:25 Urine Urobilinogen 0.2 mg/dL (0.2-1.0) 06/02/18 03:25 Ur Leukocyte Esterase Negative (NEGATIVE) 06/02/18 03:25 Blood Type O POSITIVE 06/02/18 10:08 Antibody Screen Negative 06/02/18 08:28 HOSPITAL COURSE: 67 yo M with PMHx of HTN, GERD, Ron's, s/p R upper thigh large benign mass removal 2m ago but no prev abdominal surgeries with one day history of intractable progressive periumbilical pain. CT abdomen showed high grade obstruction. Patient was subequently taken to OR for small bowel resection, biopsy of proximal small bowel implant, peritoneal washings, with primary anastomosis. 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 Seen by Neurosurgery Dr. Gill, no intervention at this time. Diet was advanced as tolerated and pain controlled. Patient is instructed to make an appointment with Dr. Barcenas oncology to discuss diagnosis and possible treatments if necessary. Instructed to resume normal activity and limit the amount of heavy lifting. Tylenol for pain, and follow up with surgery and primary MD in 1-2 weeks. Date of Admission:06/02/18 Date of Discharge: 06/10/18 Minutes to complete discharge: 42 Discharge Summary Reason For Visit: SMALL BOWEL OBSTRUCTION Condition: Stable - Instructions Diet, Activity, Other Instructions: Postoperative instructions: You had a small bowel resection with biopsy of small bowel nodules for a small bowel obstruction on 06/02/[address] Fredy Heller of [facility]. 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 The significance of these growths will be discussed at [facility] interdisciplinary tumor board meeting in June. You will need to make an appointment with Dr. 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 Please see his information in the referral provided and call for an appointment - you may want to wait until after the meeting has occurred to do this, which is likely to be June 22. Activity: Resume your usual activities gradually, but no heavy exertion or lifting more than 10-15 pounds for 4-6 weeks. You may shower daily, just pat the incision area dry. No bath or swimming until skin incisions have fully healed. Franci should not need to be recovered with any dressings, unless you have been told otherwise. Eat lightly at first, but advance to your usual diet as tolerated. Pain: For pain, you may use and alternate Tylenol (acetaminophen) 1-2 pills and/ or ibuprofen 200 mg (1-2 pills) every 6 hours each as needed. Do not take more than 4000 mg of acetaminophen in a day. Take medications as prescribed or indicated on the labeling. Follow-up: Call Dr. Heller's office at [phone] to make your postop appointment (Monday next week as advised). Clinic is held in the [facility] on the first floor of [facility]. Call the office if you have: * increasing pain not responsive to pain medication * fever of 101F or higher * vomiting * unusual or increasing bleeding or drainage from wounds * increasing redness or swelling at wound sites Also, see your primary medical doctor within 1-[address] scan also showed a small right adrenal mass likely an adenoma. It should be followed up by your primary medical doctor. Your CT scan also showed lumbosacral spine findings including L5-S1 anterolisthesis. You may follow up with Dr. Gill as an outpatient or a neurosurgeon of your choosing. You may discuss this with your PMD. Referrals: Teddy Yang MD, [facility] [Staff Physician] - Fredy Heller MD [Staff Physician] - 1 Week Tex Barcenas MD [Staff Physician] - 1 Week Lázaro Shepherd [Primary Care Provider] - Disposition: HOME - Home Medications Comprehensive Discharge Medication List: Ambulatory Orders Hydrochlorothiazide 20 mg PO DAILY 06/02/18 Pantoprazole Sodium [Protonix] 40 mg PO DAILY 06/03/18 Enalapril Maleate [Vasotec] 20 mg PO DAILY 06/08/18 Problem List - Problems (1) Small bowel obstruction (2) GERD (gastroesophageal reflux disease) (3) Hypertension (4) DVT prophylaxis This patient is new to me today: Yes Date on this admission: 06/10/18 Emergency Visit: No Critical Care patient: No - Discharge Referral Referred to [facility] Med [facility].: No
--- NOTE | 2018-06-16 08:07 | OP ---
DATE OF OPERATION: 06/02/2018 PREOPERATIVE DIAGNOSIS: Small-bowel obstruction. POSTOPERATIVE DIAGNOSES: Small-bowel obstruction, multiple small intestinal nodules/implants on the proximal small bowel, also fecalized small bowel with no clear etiology for transition point. PROCEDURE PERFORMED: Small-bowel resection, biopsy of proximal small-bowel implant and peritoneal washings. SURGEON: Fredy Heller MD CUT TOBACCO BULKER: Javi Clements MD ANESTHESIA: General endotracheal. ESTIMATED BLOOD LOSS: 10 mL. FLUIDS: Crystalloid 1300 mL. URINE OUTPUT: 100 mL. DRAINS: Preoperative nasogastric tube was palpated in the stomach and left. Zepeda catheter was inserted and left in place at the end of the procedure. SPECIMENS: Portion of proximal small bowel to Pathology, stitch scott proximal/lesion distal. Biopsy of small intestinal implant/nodule to Pathology from proximal jejunum and peritoneal washings were sent both fluid for culture and washings for cytology and cell count. FINDINGS: Fecalized segment of proximal small bowel with a transition area but no clear etiology. Bowel wall implant short distance distal to this. The entire segment was removed en bloc measuring 23 cm and a primary small-bowel anastomosis performed. Multiple small-bowel wall implants on the proximal small intestine were also noted back to at least the ligament of Treitz and 1 was biopsied for pathology. The affected areas were marked on the mesentery with small metal clips. Peritoneal washings were then taken for cytology from this proximal small-bowel area. The liver, stomach, colon and appendix and omentum all appeared normal to inspection and palpation to the extent possible. DISPOSITION: Stable and extubated to PACU. 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 He had no associated symptoms including no nausea or vomiting, no diarrhea or constipation or similar previous pain. In the emergency room his white count was just over 10 and he was afebrile, dehydrated by labs and urinalysis. The CAT scan showed a small-bowel obstruction with a transition zone against the right lower quadrant sidewall. Nasogastric tube was placed and IV fluids started and the patient was admitted to Medicine with Surgery in consult. Discussion with the patient and his was had regarding risks, benefits and alternatives of exploratory laparotomy, possible bowel resection, possible ostomy given his obstruction with no history of abdominal surgery. These risks included but were not limited to bleeding, infection, injury to adjacent structures, intestinal leak or injury, intraabdominal abscess, incisional hernia, need for further procedures and . Alternatives included delayed or no surgery with attendant risks of perforation, bowel ischemia, sepsis or . The patient desired to proceed with the operation, signed informed consent for the same and is now brought emergently to the OR for the same. OPERATIVE TECHNIQUE: The patient was brought to the operating room and laid supine on the operating table. Sequential compression devices were applied to bilateral lower extremities and 2 g of cefoxitin were given in the OR as preoperative antibiotic. After induction and intubation by Anesthesia a Zepeda catheter was placed in the patient's bladder which was left in place at the end of the case. He already had the nasogastric tube from the emergency room and the hair on his abdomen was clipped and then the abdomen prepped and draped in sterile fashion. A midline incision was made from just above to a short distance below the umbilicus with a scalpel and carried through the subcutaneous tissues with electrocautery until the abdominal wall fascia was identified and cleared in the midline. The fascia was then also divided with electrocautery revealing the preperitoneal fat. This was spread and the posterior sheath and peritoneum grasped with the tips of clamps and elevated such that the peritoneum could be entered sharply with Metzenbaum scissors. Once entry into the abdominal cavity had been accomplished a fingertip was placed through the hole and underneath the midline tissues allowing the remainder of the incision to be opened along its length with electrocautery while protecting the bowel underneath. There was some dilated proximal small bowel immediately apparent and as we began eviscerating the small bowel to find a point from which to run it both proximally and distally it became apparent that the dilated proximal small bowel also appeared rather congested, not quite dusky but more somewhat darkly pigmented and with lymphatic vessels clearly visible on its surface as well as appearing somewhat congested. As the small bowel was eviscerated we came upon a segment which when it came up out of the abdomen and into the field above the incision appeared to have a bit of a transition point from more proximally dilated small bowel to distally almost completely decompressed small bowel. At this point, however, there was no clear or significant kink or stricture in the bowel wall. It was merely partially folded on itself and at that point of the fold at the proximal aspect I was able to palpate a short length of soft mushy stool content. A short distance perhaps 15 cm distal to this on the bowel wall adjacent to the mesentery there appeared to be a 1- to 2-cm nodule in the small-bowel wall itself. As it became clear that this was the distal direction of the small bowel the remainder of the small bowel was run distally in an attempt to identify any additional points of transition. As part of this process we also could tell that we were going to need more exposure for the incision proximally and the incision was extended further superiorly closer to the xiphoid on the abdominal wall. This was started with a scalpel and continued with electrocautery until the incision was widened. With the small bowel having been run all the way distally to the terminal ileum and ileocecal valve a normal appendix was noted at the junction with the cecum. There were no additional nodules or implants noted in the small-bowel wall distal to the initial identified one nor any further transition points. The entire distal small bowel was essentially decompressed all the way to the colon. We then continued to run the bowel proximally over the course of the dilated segments. In the more proximal bowel that was inspected we began seeing multiple small nodular implants on the small-bowel serosa. The more proximal the bowel was run the more of these were present extending all the way up to the area where the small bowel disappeared toward the ligament of Treitz. There were no actual implants or nodules on the omentum itself or the mesentery. There were no other transition points identified. The nodules in several areas appeared to be white or pale and others appeared to be pink or tissue colored and in a couple of other locations almost alicea. They were firm to the touch and on palpation of the mesentery there were no significantly enlarged lymph nodes palpated either. The liver was inspected and palpated and noted to have a smooth surface with no lesions noted to the extent that it was inspectable. We made every effort to visualize and inspect and partially palpate the colon from cecum and ascending colon to transverse to some distal descending colon. In the sigmoid itself there were no lesions noted on the bowel there although there was some stool palpable in the colon. The incision allowed partial inspection of the superior aspect of the omentum and the lower wall of the stomach. The nasogastric tube was palpated in the body of the stomach and again no specific abnormalities were noted of the stomach or the omentum itself as far as we could tell. It was then decided to go ahead and biopsy 1 of the very proximal small-bowel implants. This was accomplished sharply with a scalpel carefully exposing the nodule by scraping away the peritoneum from the sides of it and as the nodule itself seemed to delve into the small-bowel wall rather than risk entering the small-bowel lumen we elected to transect the nodule sharply with a scalpel and get most of it as opposed to all of it for a specimen and this piece was passed off on a Telfa pad for pathology. The area it had been taken from the serosa was then imbricated with two 3-0 silk sutures in Lembert fashion. Attention was then turned to the area where the fecalized small bowel transitioned to decompressed small bowel and the other larger lesion just distal to that. The palpable soft stool in the bowel was milked proximally for 2 or 3 cm and an area chosen for transection just proximal to the actual transition point. A window was made in the mesentery immediately adjacent to the bowel wall with the tip of a clamp and a GIA60 stapler used to transect the proximal small bowel from this site. Approximately 23 cm distal to that on the distal side of the small-bowel wall lesion an additional transection site was identified and created in the same fashion and a GIA60 also used to transect the small bowel distally. The proximal margin was marked with a stitch for Pathology. The lesion was located in the distal aspect. LigaSure Impact was then used to transect the mesentery from point to point completing the small-bowel resection which was passed off to be sent to Pathology. The staple lines were hemostatic. Hemostasis was achieved where necessary during the case with electrocautery however. The proximal and distal limb of the small bowel were then held adjacent to each other and 3-0 silk stitches used to approximate the antimesenteric corners as well as the area close to where the crotch of the anastomosis was anticipated to be. A stapled anastomosis was then carried out by creating a small hole in the antimesenteric side of both limbs with electrocautery, inserting another GIA60 stapler and firing it to create the stapled anastomosis. The enterotomy was then held up with [place] clamps and also closed with a TA60 stapler, the staple line having also been added to the pathologic specimen. The mesenteric defect was then closed with a running 3-0 Vicryl suture. Just after the biopsy of the proximal small-bowel implant and before the anastomosis had been completed several peritoneal washings were taken from the upper abdomen near these nodules. Some of the fluid was noted to be bloody, but it was irrigated a small bit with saline solution to provide for washings of that area which were collected in a Lukens trap to be sent for cytology and cell count. Peritoneal fluid culture had been taken on entry into the abdominal cavity. All of the fluid did not appear to be particularly murky. After the anastomosis had been completed again the upper abdomen and both sides of the abdomen were irrigated with saline solution and suctioned clear. A last inspection of the abdominal cavity and adjacent organs was undertaken with the above findings and the omentum drawn down somewhat over the small bowel. The peritoneum was then closed prior to closure of the abdominal wall fascia. This was accomplished with a running 2-0 Vicryl suture. Once the peritoneum had been closed the abdominal wall fascia was then closed with No. 1 looped PDS suture x2 in running fashion starting both at the top and the bottom and being tied together in the middle. The wound was irrigated with saline before skin was then closed with rhiannon. Of note I did forget to mention that following biopsy of the proximal small-bowel implant small metallic clips were also used to nico the mesentery adjacent to the small bowel next to multiple areas of these implants in the proximal small bowel as well as next to several remaining implants in case identification of these areas on imaging was later necessary. Counts were correct at the end of the procedure. Dressing of folded gauze and Tegaderms was placed over the midline incision after rhiannon were placed. The patient was then awakened and extubated by Anesthesia and again the nasogastric tube and Zepeda catheter were left. He was moved back to a stretcher and taken to the recovery room in stable condition having tolerated the procedure well. Dr. Clements was an essential assistant controller throughout the procedure beginning with entry into the abdominal cavity, assistance with biopsy of the small-bowel implant and small-bowel resection and anastomosis, irrigation of the abdominal cavity and then closure of both the peritoneum and the fascia prior to skin closure. Shu Frances/[id number]
== END 2018-06-10 14:41 | disposition home or self-care (01) | DRG 331 ==
LOC: JER 00:15 → JERBED 08:27 → J6S 14:56
PROVIDERS: ADMIT Internal Medicine; ATTEND Internal Medicine
PROC: 0DBA0ZZ Excision of Jejunum, Open Approach (ICD-10-PCS; 2018-06-02)
PROC: 0DB80ZX Excision of Small Intestine, Open Approach, Diagnostic (ICD-10-PCS; 2018-06-02)
PROC: 3E1M38X Irrigation of Peritoneal Cavity using Irrigating Substance, Percutaneous Approach, Diagnostic (ICD-10-PCS; 2018-06-02)
PROC: 0DB80ZZ Excision of Small Intestine, Open Approach (ICD-10-PCS; principal; 2018-06-02 10:30)
DX: K56.609 Unspecified intestinal obstruction, unspecified as to partial versus complete obstruction (principal); I10 Essential (primary) hypertension; K21.9 Gastro-esophageal reflux disease without esophagitis; K22.70 Barrett's esophagus without dysplasia; R10.33 Periumbilical pain; N20.0 Calculus of kidney; Q85.00 Neurofibromatosis, unspecified; M43.17 Spondylolisthesis, lumbosacral region; D17.23 Benign lipomatous neoplasm of skin and subcutaneous tissue of right leg; Z87.891 Personal history of nicotine dependence
CPT/HCPCS: 36415; 71045-TC-FY; 74177-TC; 80048; 80053; 81003; 82378; 83605; 83690; 83735; 84100; 84132; 85025; 85027; 85379; 85610; 85730; 86301; 86850; 86900; 86901; 87070; 87075; 87086; 87205; 88104; 88305-TC; 88307-TC; 93005; 93010; 93971-TC; 94010; 94760; 99285-25; J0131; J7030